=== PATIENT | male | born 1950 | race Caucasian/White ===

== ENCOUNTER → 2017-12-31 16:13 | Outpatient (CLI) | payer OTHER, SELFPAY ==
[2017-12-31 18:10] LABS: Vitamin B12 337 pg/mL (211-911)
[2017-12-31 18:17] LABS: T4 Free Direct 0.91 ng/dL (0.76-1.46); Thyroid Stim Hormone (TSH) 1.71 uIU/mL (0.358-3.74)
== END ==
PROVIDERS: Family Provider Family Medicine; PCP Family Medicine; Visit Provider Family Medicine
DX: E01.0 Iodine-deficiency related diffuse (endemic) goiter (principal); R41.3 Other amnesia
CPT/HCPCS: 36415; 82607; 84439; 84443

== ENCOUNTER → 2018-01-16 08:41 | Outpatient (CLI) | payer OTHER, SELFPAY ==
--- NOTE | 2018-01-16 09:25 | MRI_ITS ---
STUDY: MRI BRAIN WITHOUT CONTRAST REASON FOR EXAM: Male, 67 years old. Memory loss, short tempered for a few months. TECHNIQUE: Standardized multiplanar fat and water weighted pulse sequences were obtained. COMPARISON: None. FINDINGS: There is mild cerebral atrophy with widening of the extra-axial spaces and ventricular dilatation. There are a limited number of small white matter hyperintensities, distributed throughout the deep white matter tracts of the cerebral hemispheres, consistent with mild chronic white matter ischemic changes. Small lacunar infarct within the left basal ganglia is noted. There is no evidence for recent intracranial ischemia or other cause of cytotoxic edema on diffusion weighted imaging (DWI). Normal T2* images of the brain without demonstrated susceptibility artifact. There is no demonstrated hemosiderin stain. Normal bilateral basal ganglia. Normal thalami. There is no extra-axial fluid accumulation. Normal flow voids within the major intracranial circulation suggesting patency by spin echo criteria. Normal sella turcica, pituitary gland, infundibular stalk, optic chiasm and hypothalamus. Normal tectal plate and pineal gland. Normal midbrain, olman and medulla. Normal cerebellum. Normal basal cisterns. Normal bilateral temporal bones. Normal bilateral internal auditory canals. No demonstrated orbital abnormality, within the constraints of a routine brain study. Right maxillary mucoid retention cyst versus polyp is present. Normal calvarium and skull base. Normal visualized soft tissue structures. Normal visualized upper cervical spine. MRI/Brain without Contrast IMPRESSION: Senescent changes with no evidence of acute intracranial bleed, mass or ischemia. Electronically Signed: Eben Szymanski DO at 12:08 EDT , Service support ,
== END ==
PROVIDERS: Family Provider Family Medicine; PCP Family Medicine; Visit Provider Family Medicine
DX: R41.3 Other amnesia (principal); F68.8 Other specified disorders of adult personality and behavior
CPT/HCPCS: 70551

== ENCOUNTER → 2018-02-15 07:22 | Outpatient (CLI) | payer OTHER, SELFPAY | PROVIDERS: Family Provider Family Medicine; PCP Family Medicine; Visit Provider Psychiatry & Neurology Neurology | DX: Z85.038 Personal history of other malignant neoplasm of large intestine (principal); R41.3 Other amnesia; F91.8 Other conduct disorders | CPT/HCPCS: 78608; A9552; A4216 ==

== ENCOUNTER → 2018-05-01 09:05 | Outpatient (CLI) | payer OTHER, SELFPAY ==
--- NOTE | 2018-05-01 09:12 | US_ITS ---
HISTORY: THYROMEGALY TECHNIQUE: Steele scale and color doppler imaging was performed of the thyroid gland. COMPARISON: None FINDINGS: The thyroid gland appears normal in overall size with measurements approximately as follows: Right lobe: 4.6 x 1.5 x 1.8 cm Left lobe: 4.2 x 1.6 x 1.7 cm Isthmus 0.3 cm The right thyroid lobe shows homogenous echotexture. The midpole of the left thyroid lobe shows a solitary hypoechoic nodule measuring 0.4 x 0.4 x 0.3 cm. No dominant lesion seen. US/Thyroid IMPRESSION: 1. Normal thyroid gland size. 2. Left thyroid lobe 0.4 cm nodule. No dominant lesion seen. at 0111 Reported and signed by: David Gallo MD Electronically Signed: David Gallo, at 1:08 EDT Tel , Service support ,
[2018-05-01 10:52] LABS: Absolute Neutrophil Count 3.4 X10^3/uL (2.0-7.7); Basophil% 0.2 % (0-1); Eosinophils% 2.9 % (0-5); Hematocrit 46.6 % (40-54); Hemoglobin 15.7 g/dl (13.0-16.5); Lymphocyte % 30.3 % (19-41); Mean Corp Hgb Conc 33.7 g/gl (32-36); Mean Corpuscular Hgb 31.2 pg (27.0-32.0); Mean Corpuscular Volume 92.5 fL (80-94); Mean Platelet Vol. 10.3 fl (6.2-12.0); Monocyte% 8.9 % (0-10); Neutrophil # 3.43 X10^3/uL (2.7-7.7); Neutrophil % 57.5 % (47-70); Platelet Count 207 K/mm3 (150-450); RBC Distribution Width CV 13.4 % (11.6-14.6); RBC Distribution Width SD 45.3 fl (35.1-43.9); Red Blood Count 5.04 M/mm3 (4.6-6.2)
[2018-05-01 10:53] LABS: Basophil# 0.01 X10^3/uL; Eosinophil# 0.17 X10^3/uL; Monocyte# 0.53 X10^3/uL; POSITIVE COUNT NO; POSITIVE DIFFERENTIAL NO; POSITIVE MORPHOLOGY NO
[2018-05-01 11:22] LABS: ALB/GLOB Ratio 1.1 RATIO (0.9-2.4); AST(SGOT) 17 U/L (15-37); Alanine Aminotransfer ALT/SGPT 32 U/L (16-61); Albumin, Serum 3.8 g/dL (3.2-5.0); Alkaline Phosphatase 81 U/L (45-117); Anion Gap 6 (5-15); BUN 15 mg/dL (7-18); BUN/Creat Ratio 15.6 RATIO (10-20); Calcium,Total 8.6 mg/dL (8.5-10.1); Chloride 105 mmol/L (98-107); Cholesterol 112 mg/dL (200); Creatinine, Serum 0.96 mg/dL (0.70-1.30); EST Glomerular Filtration Rate 83 mL/min (>60); Est Glom Filt Rate - Afr Amer 101 mL/min (>60); Globulin 3.4 g/dL (2.2-4.2); Glucose 87 mg/dL (74-106); High Density Lipoprotein 37 mg/dL; PSA,Total - Annual Screen 0.73 ng/mL (0.00-4.00); Potassium 3.5 mmol/L (3.5-5.1); Protein, Total 7.2 g/dL (6.4-8.2); Sodium Level 141 mmol/L (136-145); Thyroid Stim Hormone (TSH) 2.01 uIU/mL (0.358-3.74); Triglycerides 84 mg/dL; Very Low Density Lipoprotein 17 mg/dL (5-40)
[2018-05-01 11:38] LABS: Vitamin B12 913 pg/mL (211-911)
== END ==
PROVIDERS: Family Provider Family Medicine; PCP Family Medicine; Referring Provider Family Medicine; Visit Provider Family Medicine
DX: Z00.01 Encounter for general adult medical examination with abnormal findings (principal); E01.0 Iodine-deficiency related diffuse (endemic) goiter; I10 Essential (primary) hypertension; E53.8 Deficiency of other specified B group vitamins; Z12.5 Encounter for screening for malignant neoplasm of prostate
CPT/HCPCS: 36415; 76536; 80053; 80061; 82607; 84153; 84439; 84443; 85025; G0103

== ENCOUNTER → 2019-06-28 09:38 | Outpatient (CLI) | payer BC, SELFPAY ==
[2019-06-28 10:47] LABS: Absolute Lymphocyte Count 2.73 X10^3/uL (0.83-4.51); Absolute Neutrophil Count 3.9 X10^3/uL (2.0-7.7); Basophil# 0.03 X10^3/uL; Basophil% 0.4 % (0-1); Eosinophil# 0.22 X10^3/uL; Eosinophils% 2.8 % (0-5); Hematocrit 49.3 % (40-54); Hemoglobin 16.8 g/dL (13.0-16.5); Lymphocyte # 2.73 X10^3/ul (4.0); Lymphocyte % 35.3 % (19-41); Mean Corp Hgb Conc 34.1 g/dL (32-36); Mean Corpuscular Hgb 31.4 pg (27.0-32.0); Mean Corpuscular Volume 92.1 fL (80-94); Mean Platelet Vol. 10.6 fl (6.2-12.0); Monocyte# 0.79 X10^3/uL; Monocyte% 10.2 % (0-10); NRBC Flagged by Analyzer 0 % (0-5); Neutrophil # 3.94 X10^3/uL (2.7-7.7); Neutrophil % 50.9 % (47-70); Platelet Count 214 K/mm3 (150-450); RBC Distribution Width CV 12.8 % (11.6-14.6); RBC Distribution Width SD 42.8 fl (35.1-43.9); Red Blood Count 5.35 M/mm3 (4.6-6.2); White Blood Count 7.7 K/mm3 (4.4-11.0)
[2019-06-28 11:21] LABS: Vitamin B12 663 pg/mL (211-911)
[2019-06-28 11:23] LABS: ALB/GLOB Ratio 0.9 RATIO (0.9-2.4); AST(SGOT) 51 U/L (15-37); Alanine Aminotransfer ALT/SGPT 94 U/L (16-61); Albumin, Serum 3.6 g/dL (3.2-5.0); Alkaline Phosphatase 98 U/L (45-117); Anion Gap 5 (5-15); BUN 21 mg/dL (7-18); BUN/Creat Ratio 19.6 RATIO (10-20); Calcium,Total 8.5 mg/dL (8.5-10.1); Chloride 105 mmol/L (98-107); Cholesterol 186 mg/dL (200); Creatinine, Serum 1.07 mg/dL (0.70-1.30); EST Glomerular Filtration Rate 73 mL/min (>60); Est Glom Filt Rate - Afr Amer 89 mL/min (>60); Globulin 3.8 g/dL (2.2-4.2); Glucose 96 mg/dL (74-106); High Density Lipoprotein 36 mg/dL; PSA,Total - Annual Screen 0.82 ng/mL (0.00-4.00); Potassium 3.6 mmol/L (3.5-5.1); Protein, Total 7.4 g/dL (6.4-8.2); Sodium Level 139 mmol/L (136-145); Triglycerides 189 mg/dL; Very Low Density Lipoprotein 38 mg/dL (5-40)
== END ==
LOC: LAB.FUTURE 09:47 → LAB 09:53
PROVIDERS: Family Provider Family Medicine; PCP Family Medicine; Referring Provider Family Medicine; Visit Provider Family Medicine
DX: I10 Essential (primary) hypertension (principal); E53.8 Deficiency of other specified B group vitamins; E78.5 Hyperlipidemia, unspecified; Z12.5 Encounter for screening for malignant neoplasm of prostate
CPT/HCPCS: 36415; 80053; 80061; 82607; 84153; 85025; G0103

== ENCOUNTER → 2019-11-01 | Outpatient (CLI) | payer BC, SELFPAY ==
--- NOTE | 2019-11-01 10:40 | RAD_ITS ---
STUDY: X-RAY - RIGHT TIBIA AND FIBULA REASON FOR EXAM: Male, 69 years old. Right knee and leg pain, no injury TECHNIQUE: 2 view(s) of the tibia and fibula were obtained. COMPARISON: None. FINDINGS: Normal visualized tibia. Normal visualized fibula. The soft tissue structures are unremarkable. RAD/Tibia & Fibula 2 Views IMPRESSION: Normal x-ray examination of the tibia and fibula. Electronically Signed: Blane Stark, at 10:57 EDT , Service support ,
--- NOTE | 2019-11-01 10:40 | RAD_ITS ---
STUDY: X-RAY - RIGHT KNEE REASON FOR EXAM: Male, 69 years old. Right knee and leg pain, no injury TECHNIQUE: 4 view(s) of the knee. COMPARISON: None. FINDINGS: Normal visualized distal femur. Normal visualized proximal tibia and fibula. Normal proximal tibiofibular articulation. There is mild degenerative arthrosis of the medial femorotibial compartment. Normal lateral femorotibial compartment. There is mild degenerative arthrosis of the patellofemoral articulation. The soft tissue structures are unremarkable. RAD/Knee 4 or More Views IMPRESSION: Degenerative arthrosis. Electronically Signed: Blane Stark, at 10:57 EDT , Service support ,
[2019-11-01 13:16] LABS: AST(SGOT) 57 U/L (15-37); Alanine Aminotransfer ALT/SGPT 103 U/L (16-61); Albumin, Serum 3.8 g/dL (3.2-5.0); Alkaline Phosphatase 104 U/L (45-117); Bilirubin, Direct 0.21 mg/dL (0.00-0.30); Cholesterol 144 mg/dL (200); Globulin 3.7 g/dL (2.2-4.2); High Density Lipoprotein 36 mg/dL; Protein, Total 7.5 g/dL (6.4-8.2); Triglycerides 120 mg/dL; Very Low Density Lipoprotein 24 mg/dL (5-40)
== END | disposition home or self-care (01) ==
PROVIDERS: Family Provider Family Medicine; PCP Family Medicine; Referring Provider Family Medicine; Visit Provider Family Medicine
DX: E78.5 Hyperlipidemia, unspecified (principal); R74.8 Abnormal levels of other serum enzymes; M25.561 Pain in right knee; M79.604 Pain in right leg
CPT/HCPCS: 36415; 73564; 73590; 80061; 80076

== ENCOUNTER → 2019-11-16 10:34 | Outpatient (CLI) | payer BC, SELFPAY ==
[2019-11-16 12:44] LABS: GGTP 49 U/L (15-85)
[2019-11-16 13:45] LABS: Hepatitis B Surface Antibody Non-Reactive; Hepatitis C Antibody Non-Reactive (Nonreactive)
[2019-11-17 09:08] LABS: Hepatitis B Core AB IgM Negative (Negative)
== END ==
PROVIDERS: PCP Family Medicine; Referring Provider Family Medicine; Visit Provider Family Medicine
DX: R74.8 Abnormal levels of other serum enzymes (principal)
CPT/HCPCS: 36415; 82977; 86705; 86706; 86803

== ENCOUNTER → 2019-11-17 09:37 | Outpatient (CLI) | payer BC, SELFPAY ==
--- NOTE | 2019-11-17 09:41 | US_ITS ---
STUDY: ABDOMINAL ULTRASOUND - RIGHT UPPER QUADRANT REASON FOR VISIT: Male, 69 years old ELEVATED LIVER ENZYMES TECHNIQUE: Ultrasound evaluation of the right upper quadrant was performed with real-time and static macdonald-scale imaging. TECHNICAL QUALITY: Limited. Examination limited by bowel gas. COMPARISON: None. FINDINGS: Liver: The liver measures 16 cm. There is mild fatty infiltration. The bile ducts are within normal limits. There is hepatic color flow. The direction of portal flow is hepatopetal. There is no demonstrated mass lesion. Gallbladder: Normal distended gallbladder. The gallbladder wall measures 2.8 mm. There is a negative sonographic Hernandez''s sign. There is no pericholecystic fluid. There are no gallstones. Common Bile Duct (C.B.D.): The common bile duct measures 3.4 mm. Pancreas: Visualized pancreas is sonographically normal Right Kidney: Normal size of the right kidney. The right kidney measures 10.8 x 5.6 x 6.5 cm. Normal renal cortex. The right cortex measures 1.8 cm. There is no demonstrated renal mass or cyst. There is no right hydronephrosis. US/Liver IMPRESSION: Fatty liver, no discrete lesion Electronically Signed: Juve Gaxiola MD at 11:58 EDT , Service support ,
== END ==
PROVIDERS: PCP Family Medicine; Referring Provider Family Medicine; Visit Provider Family Medicine
DX: R74.8 Abnormal levels of other serum enzymes (principal)
CPT/HCPCS: 76705

== ENCOUNTER → 2020-04-20 | Outpatient (CLI) | payer BC, SELFPAY ==
[2020-04-20 18:17] LABS: Erythrocyte Sedimentation Rate 16 mm/hr (0-20)
[2020-04-20 18:26] LABS: CRP 3.64 mg/L (0.0-3.0); Rheumatoid Factor < 10.0 IU/mL (<15); Uric Acid 5.2 mg/dL (3.5-7.2)
[2020-04-24 12:05] LABS: CCP IgG Antibodies 5 units (0-19)
== END | disposition home or self-care (01) ==
LOC: BFHLAB 15:05
PROVIDERS: PCP Family Medicine; Visit Provider Family Medicine
DX: M79.641 Pain in right hand (principal); M79.89 Other specified soft tissue disorders
CPT/HCPCS: 36415; 84550; 85652; 86140; 86200; 86431

== ENCOUNTER → 2020-06-25 09:50 | Outpatient (CLI) | payer MEDICARE, OTHER, SELFPAY ==
[2020-05-21 12:58] VITALS: BMI 26.7
--- NOTE | 2020-06-25 10:00 | RAD_ITS ---
STUDY: X-RAY - PELVIS REASON FOR EXAM: Male, 69 years old. INFLAMMATORY POLYARTHROPATHY, SPONDYLOSIS TECHNIQUE: One view of the pelvis was obtained. COMPARISON: None. FINDINGS: There is a non-specific bowel gas pattern. Normal visualized soft tissue structures. Normal bilateral iliac wings, sacroiliac joints and visualized sacrum. Normal visualized bilateral superior and inferior pubic rami. Normal pubic symphysis. Normal ischial tuberosities. Normal visualized right femoral head. Normal right acetabulum. Normal right hip joint. Normal visualized left femoral head. Normal left acetabulum. Normal left hip joint. RAD/Pelvis 1 or 2 Views IMPRESSION: Normal x-ray examination of the pelvis. Electronically Signed: Antonio Coleman MD at 0:00 EST , Service support ,
[2020-06-25 12:23] LABS: Erythrocyte Sedimentation Rate 5 mm/hr (0-20)
[2020-06-25 12:26] LABS: Absolute Lymphocyte Count 2.58 X10^3/uL (0.83-4.51); Absolute Neutrophil Count 3.4 X10^3/uL (2.0-7.7); Basophil# 0.03 X10^3/uL; Basophil% 0.4 % (0-1); Eosinophil# 0.26 X10^3/uL; Eosinophils% 3.8 % (0-5); Hematocrit 50.7 % (40-54); Hemoglobin 17.3 g/dL (13.0-16.5); Lymphocyte # 2.58 X10^3/ul (4.0); Lymphocyte % 37.8 % (19-41); Mean Corp Hgb Conc 34.1 g/dL (32-36); Mean Corpuscular Hgb 30.9 pg (27.0-32.0); Mean Corpuscular Volume 90.5 fL (80-94); Mean Platelet Vol. 10.5 fl (6.2-12.0); Monocyte# 0.56 X10^3/uL; Monocyte% 8.2 % (0-10); NRBC Flagged by Analyzer 0 % (0-5); Neutrophil # 3.39 X10^3/uL (2.7-7.7); Neutrophil % 49.7 % (47-70); Platelet Count 233 K/mm3 (150-450); RBC Distribution Width SD 43.2 fl (35.1-43.9); White Blood Count 6.8 K/mm3 (4.4-11.0)
[2020-06-25 12:50] LABS: ALB/GLOB Ratio 1.1 RATIO (0.9-2.4); AST(SGOT) 48 U/L (15-37); Alanine Aminotransfer ALT/SGPT 102 U/L (16-61); Alkaline Phosphatase 86 U/L (45-117); Anion Gap 8 (5-15); BUN 20 mg/dL (7-18); CRP < 2.90 mg/L (0.0-3.0); Chloride 107 mmol/L (98-107); Creatinine, Serum 1.05 mg/dL (0.70-1.30); EST Glomerular Filtration Rate 75 mL/min (>60); Est Glom Filt Rate - Afr Amer 90 mL/min (>60); Globulin 3.6 g/dL (2.2-4.2); Glucose 114 mg/dL (74-106); Potassium 3.2 mmol/L (3.5-5.1); Protein, Total 7.6 g/dL (6.4-8.2); Rheumatoid Factor < 10.0 IU/mL (<15); Sodium Level 141 mmol/L (136-145)
[2020-06-25 13:01] LABS: Hepatitis B Surface Antibody Non-Reactive; Hepatitis B Surface Antigen Non-Reactive (Nonreactive); Hepatitis C Antibody Non-Reactive (Nonreactive)
[2020-06-26 13:32] LABS: ANTINUCLEAR ANTIBODIES DIRECT Negative (Negative)
[2020-06-27 09:28] LABS: CCP IgG Antibodies 7 units (0-19)
== END ==
PROVIDERS: PCP Family Medicine; Referring Provider Internal Medicine Rheumatology; Visit Provider Internal Medicine Rheumatology
DX: M06.4 Inflammatory polyarthropathy (principal); M19.041 Primary osteoarthritis, right hand; G56.01 Carpal tunnel syndrome, right upper limb; M47.897 Other spondylosis, lumbosacral region; I10 Essential (primary) hypertension; E78.5 Hyperlipidemia, unspecified; F32.9 Major depressive disorder, single episode, unspecified; Z85.038 Personal history of other malignant neoplasm of large intestine
CPT/HCPCS: 36415; 72170; 80053; 85025; 85652; 86038; 86140; 86200; 86431; 86706; 86803; 87340

== ENCOUNTER 2020-07-20 05:57 | Day surgery (SDC) | payer MEDICARE, OTHER, SELFPAY ==
[2020-05-21 12:58] VITALS: BMI 26.7
[2020-07-20] VITALS (11 sets, daily range): BP systolic 103–149; BP diastolic 70–94; PULSE 56–74; RESP 16–18; TEMP 36.6–36.8; O2SAT 92–97; BMI 27.9
[2020-07-20] MEDS: Lactated Ringers 1,000 ML 100 ML IV (06:44)
[2020-07-20] MEDS: Cefazolin 2 GM in 0.9% Normal Saline 100 ML IV (07:31)
[2020-07-20] MEDS: Bupiv/Epi 0.5% Mpf 30 ML Vial (08:00)
--- NOTE | 2020-07-20 08:03 | PCM.HP.BLA ---
History and Physical Date of Admission: 07/20/20 Intake Intake Visit Reasons: right Hand Accompanied by: Spouse Is patient in pain?: No Allergies hydrocodone bitartrate [From Vicodin] Adverse Reaction (Verified 07/11/20 10:41) N/V Medications Atorvastatin Calcium [Lipitor] 40 mg PO QHS 04/24/15 [History Confirmed 07/11/20] Hydrochlorothiazide [Hctz] 25 mg PO DAILY 04/24/15 [History Confirmed 07/11/20] Ibuprofen [Motrin] 400 mg PO Q6H PRN PRN #0 tab 04/29/15 [Rx Confirmed 07/11/20] lisinopril 10 mg tablet ea PO 05/21/20 [History Confirmed 07/11/20] sertraline 100 mg tablet ea PO 05/21/20 [History Confirmed 07/11/20] PFSH Medical History (Updated 05/21/20 @ 12:59 by Naz Coronado) HTN (hypertension) (Chronic) Social History (Updated 07/11/20 @ 11:[address] Grupo Yates DO) Smoking Status: Former smoker HPI right Hand: Details: Parts of this documentation were recorded by a scribe, this documentation accurately reflects the service provided and the decisions made by me, Dr. Grupo Yates DO 07/11/20 [id number]. CHASITY HAYDEN is a 69 year old M here today for his right hand. Discuss recent EMG study. Pain is rated: 0/10 from the pain scale. Patient recently saw Dr. Bonilla. Patient is to follow up in two weeks. Did not prescribe anything for his RA d/t did not know if the patient would be having surgery or not. Patient states her sensation has decreased. If he picks an item up, he cannot sense it is in his hand. Patient voiced he has pain with making a fist. Radial three digits are effected. ROS Musc Reports system reviewed and no additional complaints, except as docu, Denies joint pain, Reports joint swelling, Reports numbness Neuro Yes numbness Ortho Exam Right Wrist/Hand WRIST: Right Wrist/Hand Skin/Wound: Yes Swelling, No Ecchymosis, Yes nail intact, Yes capillary refill normal Tinel's and Phalen's no drainage or sign of infection swelling/tendernes about MCP of 1st second and third digits. not 4th and 5th numbness and tingling of the radial 3 digits. swelling of volar wrist duputryens cord of the 5th finger without flexion contracutur of digit. non TTP over middle metacarpal shaft. not full extension of the digits stiffness with flexion Supplemental Info 07/09/2020 EMG right upper extremity07/09/2020 EMG right upper extremityAdvanced median neuropathy at the wrist with absent sensory latencyAtrophy of APB axonal loss andSuperficial radial sensory Neuropathy 05/21/20: x-ray right hand: Subacute nondisplaced fracture third metacarpal shaftWith callus, Advanced arthrosisFirst second and third MCP jointPunched out lesion base of first proximal phalanx possibly consistent with gout Similar subchondral cyst in the third digit proximal phalanx distal Condyle head Assessment & Plan Problems 1. Closed nondisplaced fracture of shaft of third metacarpal bone of right hand with routine healing, subsequent encounter S62.980D 2. Carpal tunnel syndrome of right wrist G56.01 3. Stiffness of finger joint of right hand M25.641 Plan Personally reviewed the EMG study and consult note from Dr. Grant. Educated and explained to patient and his spouse his median nerve is entrapped/ pinched where the muscle in his thumb is degenerating. Would decompress the nerve during surgery. Risk is patient may or may not get relief. Surgery would prevent the damage from worsening. Surgery would be approx ten minutes. Soreness for three to four months. May take away for the nerve to start working and would improve overtime. Sensory nerve is also getting pinched. Thumb also has severe arthritis. Patient would like to proceed with surgery for carpal tunnel release. Advised d/c anti-inflammatories seven days prior to surgery. Reviewed the pre-operative plans with the patient. Risks and benefits of the procedure were fully explained, including but not limited to infection, neurovascular injury, continued pain, arthritis, stiffness, need for further surgery, re-injury, DVT, PE, general risks of anesthesia, and loss of limb or life. The patient understands all the risks and does wish to proceed with written consent. Will have a dressing on for two days. Will have restrictions for 3 weeks post op but emphasized importants of early finger ROM as he is stiff already. All questions answered. Patient in agreement of plan. Follow up post-op or sooner if pain, swelling, numbness or associated symptoms, or concerns develop. Coding Level of Care Code Off vis,est,level 3 Diagnoses Closed nondisplaced fracture of shaft of third metacarpal bone of right hand with routine healing, subsequent encounter S62.352D ??Encounter type: subsequent encounter ??Metacarpal bone: third ??Metacarpal location: shaft ??Fracture alignment: nondisplaced ??Fracture healing: with routine healing Carpal tunnel syndrome of right wrist G56.01 Stiffness of finger joint of right hand M25.641 ??Laterality: right I have re-examined the patient. There are no clinical changes since date of exam Procedure Criteria Procedure Type: Elective COVID Risk Discussion: The surgeon/proceduralist and patient have discussed in detail the risk of exposure to and/or potential harm posed by the COVID-19 virus with having a surgery/procedure at this time versus the risk of delaying the surgery/procedure. It is not possible to know either the risk of delaying the surgery or procedure or chance of getting an infection with perfect accuracy, but a joint decision was made between the patient and the surgeon/proceduralist to proceed at this time with the scheduled surgery/procedure as indicated on the consent form.
--- NOTE | 2020-07-20 08:08 | DCINST_ITS ---
Discharge Diet: No Restrictions Call your doctor if you observe: Shortness of breath, Chest pain Additional Instructions: Ice and elevate operative extremity next 72 hours. Keep dressing on clean and dry for 48 hours then may remove and allow warm soapy water to rinse over incision but do not submerge until sutures are out. Then apply bandaid over incision and change daily. encourage finger range of motion. Not lift more than 1/2 pound. Allergies/Adverse Reactions: Allergies hydrocodone bitartrate [From Vicodin] Adverse Reaction (Verified 07/20/20 06:21) N/V Medications to take at Discharge Atorvastatin Calcium [Lipitor] 40 mg PO QHS 04/24/15 Hydrochlorothiazide [Hctz] 25 mg PO DAILY 04/24/15 lisinopril 10 mg tablet 10 mg PO DAILY 05/21/20 sertraline 100 mg tablet 100 mg PO DAILY 05/21/20 traMADol [Ultram] 50 mg PO Q8H PRN PRN #25 tablet 07/20/20 The following prescriptions were given: traMADol [Ultram] 50 mg PO Q8H PRN PRN #25 tablet PRN Reason: Pain Score 6-10 Transmission Status: Sent to [facility] Primary Care Physician: Shukri De León DO [Primary Care Provider] - Test Results: Test results from this visit will be discussed in further detail at your follow- up appointment, if applicable. Please Follow Up With: Grupo Yates DO - 2 weeks
--- NOTE | 2020-07-20 08:09 | PCM.OPRPT ---
Report of Operation Date of Procedure: 07/20/20 Description of Surgical Findings:: Preoperative diagnosis; right carpal tunnel syndrome Postoperative diagnosis; same Procedure: Right open carpal tunnel release Anesthesia: Local with MAC Tourniquet time; 12 minutes 250 mm Hg Complications: None Indication for procedure; This is a 69-year-old male with long-standing symptoms consistent with carpal tunnel syndrome the patient did have electrodiagnostic evidence of this and has failed conservative treatment. Risks benefits and alternatives were reviewed including risks of bleeding infection nerve artery tissue damage need for further surgery and continued pain and symptoms, hypersensitivity to scar and Pillar pain. Procedure; The patient was met in the preoperative holding area the operative extremity was identified by both patient and physician and was marked the patient was met by anesthesia and brought back to the operating room and transferred to the operating table in the supine position. Aanesthesia was started. A well-padded tourniquet was placed on the operative upper extremity. The patient was prepped and draped in the usual sterile fashion. A timeout was called to ensure the proper patient procedure and extremity were being contemplated. 0.5 percent Marcaine with epinephrine was injected into the incisional area. An Esmarch was used to exsanguinate the extremity. The tourniquet was inflated to 250 mmHg. A midline incision was made with a 15 blade scalpel between the thenar and hypothenar eminence. This was carried down through the skin and subcutaneous tissue. Adalberto retractors were then used, a deep blade scalpel was used to make a deep incision in the palmar aponeurosis. The adalberto retractors were then placed deep to this and the transverse carpal ligament was identified a perforation was made with a scalpel and a Littler scissors were used to complete the release of the transverse carpal ligament distally under direct visualization with the tips facing ulnarly until the perivascular fat was reached. Then turning our attention proximally using a tension slide technique the proximal extent of the transverse carpal ligament was released . There was noted to be hourglass configuration to the median nerve and hypertrophy of the transverse carpal ligament without other findings. The wound was thoroughly irrigated and was closed with 4-0 nylon vertical mattress stitches. Dressing was applied in the form of xeroform 4 x 4, web roll and an leigha wrap. Tourniquet was let down there is no intraoperative complications patient tolerated the procedure well and was transferred to the PACU. All counts were correct.
== END 2020-07-20 09:59 | disposition home or self-care (01) ==
LOC: SDC 05:59 → AC 06:00
PROVIDERS: PCP Family Medicine; Referring Provider Orthopaedic Surgery; Visit Provider Orthopaedic Surgery
PROC: (CPT 64721; principal; 2020-07-20 07:15)
DX: G56.01 Carpal tunnel syndrome, right upper limb (principal); I10 Essential (primary) hypertension; Z87.891 Personal history of nicotine dependence; E78.00 Pure hypercholesterolemia, unspecified; Z90.49 Acquired absence of other specified parts of digestive tract; Z79.899 Other long term (current) drug therapy; Z20.822 Contact with and (suspected) exposure to COVID-19
CPT/HCPCS: 01810; 64721; 87426; C9803; J7120

== ENCOUNTER → 2020-08-07 09:22 | Outpatient (CLI) | payer MEDICARE, OTHER, SELFPAY ==
[2020-07-20 06:26] VITALS: BMI 27.9
--- NOTE | 2020-08-07 09:26 | US_ITS ---
STUDY: ABDOMINAL ULTRASOUND - RIGHT UPPER QUADRANT REASON FOR VISIT: Male, 69 years old ELEVATED LIVER ENZYMES- H/O COLON CA TECHNIQUE: Ultrasound evaluation of the right upper quadrant was performed with real-time and static macdonald-scale imaging. TECHNICAL QUALITY: Adequate. COMPARISON: Comparison is made with prior study dated 11/17/2019. FINDINGS: Liver: The liver is slightly enlarged and measures 18.1 cm. There is increased echogenicity consistent with fatty infiltration. The bile ducts are within normal limits. There is hepatic color flow. The direction of portal flow is hepatopetal. There is no demonstrated mass lesion. Gallbladder: Normal distended gallbladder. The gallbladder wall measures 3.0 mm. There is a negative sonographic Hernandez''s sign. There is no pericholecystic fluid. There are no gallstones. Common Bile Duct (C.B.D.): The common bile duct measures 4 mm. Pancreas: Normal size of the head, body and tail of the pancreas. There is normal echogenicity of the pancreas. There is no demonstrated pancreatic mass or cyst. Right Kidney: Normal size of the right kidney. The right kidney measures 12.4 cm x 4.8 cm x 6.3 cm. Normal renal cortex. The right cortex measures 1.8 cm. There is no demonstrated renal mass or cyst. There is no right hydronephrosis. US/Liver IMPRESSION: Mild hepatomegaly and fatty infiltration of the liver. Electronically Signed: Blane Stark MD at 12:28 EST , Service support ,
== END ==
PROVIDERS: PCP Family Medicine; Referring Provider Internal Medicine Rheumatology; Visit Provider Internal Medicine Rheumatology
DX: M06.4 Inflammatory polyarthropathy (principal); M19.041 Primary osteoarthritis, right hand; G56.01 Carpal tunnel syndrome, right upper limb; M47.897 Other spondylosis, lumbosacral region; I10 Essential (primary) hypertension; E78.5 Hyperlipidemia, unspecified; F32.9 Major depressive disorder, single episode, unspecified; Z85.038 Personal history of other malignant neoplasm of large intestine
CPT/HCPCS: 76705

== ENCOUNTER → 2020-10-13 10:04 | Outpatient (CLI) | payer MEDICARE, OTHER, SELFPAY ==
[2020-07-20 06:26] VITALS: BMI 27.9
[2020-10-13 10:46] LABS: Absolute Lymphocyte Count 2.77 X10^3/uL (0.83-4.51); Absolute Neutrophil Count 4.1 X10^3/uL (2.0-7.7); Basophil# 0.04 X10^3/uL; Basophil% 0.5 % (0-1); Eosinophil# 0.28 X10^3/uL; Eosinophils% 3.6 % (0-5); Hematocrit 48.2 % (40-54); Hemoglobin 16.4 g/dL (13.0-16.5); Lymphocyte # 2.77 X10^3/ul (0.83-4.51); Lymphocyte % 35.8 % (19-41); Mean Corpuscular Hgb 31.1 pg (27.0-32.0); Mean Corpuscular Volume 91.3 fL (80-94); Mean Platelet Vol. 10.5 fl (6.2-12.0); Monocyte# 0.59 X10^3/uL; Monocyte% 7.6 % (0-10); NRBC Flagged by Analyzer 0 % (0-5); Neutrophil # 4.05 X10^3/uL (2.7-7.7); Neutrophil % 52.4 % (47-70); Platelet Count 238 K/mm3 (150-450); RBC Distribution Width CV 12.8 % (11.6-14.6); Red Blood Count 5.28 M/mm3 (4.6-6.2); White Blood Count 7.7 K/mm3 (4.4-11.0)
[2020-10-13 10:58] LABS: ALB/GLOB Ratio 0.9 RATIO (0.9-2.4); AST(SGOT) 32 U/L (15-37); Alanine Aminotransfer ALT/SGPT 54 U/L (16-61); Albumin, Serum 3.6 g/dL (3.2-5.0); Alkaline Phosphatase 107 U/L (45-117); Anion Gap 5 (5-15); BUN 13 mg/dL (7-18); BUN/Creat Ratio 13.3 RATIO (10-20); Calcium,Total 8.5 mg/dL (8.5-10.1); Chloride 108 mmol/L (98-107); Creatinine, Serum 0.98 mg/dL (0.70-1.30); EST Glomerular Filtration Rate 81 mL/min (>60); Est Glom Filt Rate - Afr Amer 98 mL/min (>60); Globulin 3.8 g/dL (2.2-4.2); Glucose 101 mg/dL (74-106); Potassium 3.6 mmol/L (3.5-5.1); Protein, Total 7.4 g/dL (6.4-8.2); Sodium Level 140 mmol/L (136-145)
== END ==
PROVIDERS: PCP Family Medicine; Referring Provider Internal Medicine Rheumatology; Visit Provider Internal Medicine Rheumatology
DX: I10 Essential (primary) hypertension (principal); M06.4 Inflammatory polyarthropathy; M19.041 Primary osteoarthritis, right hand; G56.01 Carpal tunnel syndrome, right upper limb; M47.897 Other spondylosis, lumbosacral region; E78.5 Hyperlipidemia, unspecified; F32.9 Major depressive disorder, single episode, unspecified; Z79.899 Other long term (current) drug therapy; Z85.038 Personal history of other malignant neoplasm of large intestine
CPT/HCPCS: 36415; 80053; 85025

== ENCOUNTER → 2021-01-10 10:07 | Outpatient (CLI) | payer MEDICARE, OTHER, SELFPAY ==
[2021-01-10 11:20] LABS: Absolute Lymphocyte Count 2.49 X10^3/uL (0.83-4.51); Basophil# 0.02 X10^3/uL; Basophil% 0.3 % (0-1); Eosinophil# 0.26 X10^3/uL; Eosinophils% 4.1 % (0-5); Hematocrit 48.5 % (40-54); Hemoglobin 16.5 g/dL (13.0-16.5); Lymphocyte # 2.49 X10^3/ul (0.83-4.51); Lymphocyte % 38.9 % (19-41); Mean Corpuscular Hgb 30.8 pg (27.0-32.0); Mean Corpuscular Volume 90.5 fL (80-94); Mean Platelet Vol. 10.9 fl (6.2-12.0); Monocyte# 0.58 X10^3/uL; Monocyte% 9.1 % (0-10); NRBC Flagged by Analyzer 0 % (0-5); Neutrophil # 3.04 X10^3/uL (2.7-7.7); Neutrophil % 47.4 % (47-70); Platelet Count 247 K/mm3 (150-450); RBC Distribution Width SD 42.6 fl (35.1-43.9); Red Blood Count 5.36 M/mm3 (4.6-6.2); White Blood Count 6.4 K/mm3 (4.4-11.0)
[2021-01-10 11:49] LABS: ALB/GLOB Ratio 1.2 RATIO (0.9-2.4); AST(SGOT) 32 U/L (15-37); Alanine Aminotransfer ALT/SGPT 43 U/L (16-61); Alkaline Phosphatase 100 U/L (45-117); Anion Gap 7 (5-15); BUN 21 mg/dL (7-18); BUN/Creat Ratio 18.4 RATIO (10-20); Calcium,Total 8.8 mg/dL (8.5-10.1); Chloride 105 mmol/L (98-107); Creatinine, Serum 1.14 mg/dL (0.70-1.30); EST Glomerular Filtration Rate 68 mL/min (>60); Est Glom Filt Rate - Afr Amer 82 mL/min (>60); Globulin 3.4 g/dL (2.2-4.2); Glucose 102 mg/dL (74-106); Protein, Total 7.4 g/dL (6.4-8.2); Sodium Level 141 mmol/L (136-145)
== END ==
PROVIDERS: PCP Family Medicine; Referring Provider Internal Medicine Rheumatology; Visit Provider Internal Medicine Rheumatology
DX: M06.4 Inflammatory polyarthropathy (principal); M19.041 Primary osteoarthritis, right hand; K76.0 Fatty (change of) liver, not elsewhere classified; M72.0 Palmar fascial fibromatosis [Dupuytren]; M47.897 Other spondylosis, lumbosacral region; I10 Essential (primary) hypertension; E78.5 Hyperlipidemia, unspecified; F32.9 Major depressive disorder, single episode, unspecified; Z85.038 Personal history of other malignant neoplasm of large intestine; Z79.899 Other long term (current) drug therapy
CPT/HCPCS: 36415; 80053; 85025

== ENCOUNTER → 2021-03-28 | Outpatient (CLI) | payer MEDICARE, OTHER, SELFPAY | END | disposition home or self-care (01) | LOC: LABSPEC 16:49 | PROVIDERS: PCP Family Medicine; Visit Provider Family Medicine | DX: U07.1 COVID-19 (principal) | CPT/HCPCS: 87635; U0005; U0003 ==

== ENCOUNTER 2021-04-03 16:03 | Outpatient (CLI) | payer MEDICARE, OTHER, SELFPAY ==
[2021-04-03 16:05] VITALS: BP 119/78; PULSE 77; RESP 22; TEMP 37.1; O2SAT 75
[2021-04-03 16:10] VITALS: BP 109/70; PULSE 78; RESP 24; TEMP 36.7; O2SAT 75
== END 2021-04-03 16:10 | disposition short-term general hospital (02) ==
LOC: MS3 16:56 → MS3OUT 17:10 → MS3 17:10
PROVIDERS: PCP Family Medicine; Referring Provider Nurse Practitioner Adult Health; Visit Provider Nurse Practitioner Adult Health
DX: Z23 Encounter for immunization (principal); U07.1 COVID-19
CPT/HCPCS: Q0244

== ENCOUNTER 2021-04-03 16:32 | Inpatient (IN) | payer MEDICARE, OTHER, SELFPAY ==
[2021-04-03] VITALS (16 sets, daily range): BP systolic 114–179; BP diastolic 72–98; PULSE 74–88; RESP 14–74; TEMP 36.3–37.2; O2SAT 73–100; BMI 26.4; BMI 25.7
--- NOTE | 2021-04-03 16:59 | CT_ITS ---
STUDY: CTA CHEST REASON FOR EXAM: Male, 70 years old. dyspnea -- covid, hypoxia RADIATION DOSAGE (If Supplied By Facility): CTDIvol = ( 12.21 ) mGy, DLP = ( 503.17 ) mGycm TECHNIQUE: The examination was performed with the intravenous administration of IV 100mL Isovue-370. Post-processing of the angiographic images was performed, with multiplanar reformation and 3D reconstruction. Individualized dose optimization techniques were used for this CT. COMPARISON: None. FINDINGS: Normal enhancement of the main pulmonary artery and right and left pulmonary arteries. Normal enhancement of the bilateral peripheral pulmonary arteries. There is no demonstrated pulmonary embolism. Atherosclerotic changes of the aorta without evidence for aneurysm. There is no demonstrated aortic dissection. Heart is normal size. Is mild multivessel coronary artery calcification.. Mildly enlarged mediastinal nodes most likely inflammatory. Tiny calcified left hilar nodes. Normal visualized trachea and bronchi. The lungs are well expanded. Diffuse interstitial thickening with confluent zones of groundglass opacity within both upper and more pronounced in the lower lobes consistent with Covid 19 pneumonia. Normal pleura. Normal chest wall structures. Dorsal spine demonstrates degenerative change Small hiatal hernia is noted Normal visualized upper abdomen. CT/CTA Chest W/WO Contrast IMPRESSION: No evidence for pulmonary embolus Findings consistent with diffuse Covid 19 pneumonia more severe in the lower lobes. ASHD without evidence for aortic aneurysm periaortic leak or dissection Electronically Signed: Romel Argueta MD at 18:44 EDT , Service support ,
--- NOTE | 2021-04-03 16:59 | EKG12_ITS ---
Test Reason : SOB Blood Pressure : / mmHG Vent. Rate : 080 BPM Atrial Rate : 080 BPM P-R Int : 186 ms QRS Dur : 086 ms QT Int : 384 ms P-R-T Axes : 050 015 014 degrees QTc Int : 442 ms Normal sinus rhythm Normal ECG Confirmed by SONIDO SWANSON, REYES ([id number]), publishing editor MARIANA LEONARD ([id number]) on 04/08/2021 10:46:56 AM Referred By: NETTIE Confirmed By:MEMO HEAD MD
--- NOTE | 2021-04-03 17:13 | ED.VIS.DYS ---
HPI History of Present Illness Chief Complaint: Shortness of Breath Informant: patient Narrative Narrative: Patient sent in from [facility] for hypoxemia today pulse ox in the 70s prior to getting infusions. He did not get the infusion. He was sent down here. Symptoms started a week ago. States nonproductive cough. Headache with cough. States occasional diarrhea. No fevers no loss of taste or smell. Decreased appetite. He was diagnosed through his PCP office this past . He was referred into the clinic until today. Reported noting exertional dyspnea since Thursday. No chest pains. Denies asthma or COPD. Remote tobacco back when he was a teenager. He does not wear oxygen. No history of PE. History of hypertension, hyperlipidemia. [facility] Medical History (Updated 04/03/21 @ 20:34 by Maru Lacey) Anxiety and depression Cancer Former tobacco use High cholesterol HTN (hypertension) Rheumatoid arthritis Home Medications atorvastatin 40 mg PO DAILY 04/24/15 [History Last Taken 03/29/21] hydrochlorothiazide 25 mg PO DAILY 04/24/15 [History Last Taken 03/29/21] lisinopril 10 mg tablet 10 mg PO DAILY 05/21/20 [History Last Taken 03/29/21] sertraline 100 mg tablet 100 mg PO DAILY 05/21/20 [History Last Taken 03/29/21] cyanocobalamin (vitamin B-12) [Vitamin B-12] 1,000 mcg PO DAILY 04/03/21 [History Last Taken 03/29/21] Allergy/AdvReac Type Severity Reaction Status Date / Time hydrocodone bitartrate AdvReac N/V Verified 04/03/21 16:40 [From Vicodin] Family History (Updated 04/03/21 @ 19:[address] Elsy Parisi MD) Mother Hypertension Surgical History (Updated 04/03/21 @ 19:[address] Elsy Parisi MD) History of back surgery Hx of umbilical hernia repair S/P appendectomy S/P carpal tunnel release S/P right hemicolectomy S/P tonsillectomy and adenoidectomy Social History (Updated 04/03/21 @ 19:[address] Elsy Parisi MD) household members: spouse Smoking Status: Former smoker how long ago did patient quit smoking: Quit 35 years ago, prior 1 ppd since teenager. alcohol intake: current alcohol intake frequency: holidays/special occasions only substance use type: does not use ROS ROS ED Constitutional Constitutional ED: Denies chills, fever(s) or sweats Eyes Eyes: Denies change in vision ENT ENT ED: Denies dysphagia or sore throat Cardiovascular Cardiovascular: Denies chest pain, leg edema, palpitations or racing heartbeat Respiratory/Chest Respiratory/Chest: Reports cough, dyspnea and dyspnea on exertion Gastrointestinal Gastrointestinal: Denies abdominal pain, diarrhea, nausea or vomiting Genitourinary Genitourinary ED: Denies dysuria, hematuria or urinary frequency Musculoskeletal Musculoskeletal: Denies back pain, extremity pain or neck pain Integumentary Denies rash or wounds Neurologic Neurologic: Reports headache(s); Denies paresthesias or weakness EXAM Physical Exam Const Vital Signs: 04/03/21 16:34 04/03/21 16:39 04/03/21 16:40 Temperature 99 F 99 F 99 F Temperature Source Temporal Temporal Temporal Pulse Rate 80 80 83 Respiratory Rate 19 H 19 H 14 Respiratory Effort Blood Pressure 167/91 H 167/91 H 167/91 H Blood Pressure Mean 116 116 116 Pulse Ox 73 88 91 Oxygen Delivery Method Room Air Nasal Cannula Nasal Cannula Oxygen Flow Rate (L/min) 6 7 04/03/21 16:44 04/03/21 16:45 04/03/21 17:40 Temperature 99 F Temperature Source Temporal Pulse Rate 82 Respiratory Rate 14 Respiratory Effort Short of Breath Labored Blood Pressure 156/98 H Blood Pressure Mean 117 Pulse Ox 93 91 Oxygen Delivery Method Nasal Cannula Nasal Cannula Nasal Cannula Oxygen Flow Rate (L/min) 7 7 12 04/03/21 18:23 04/03/21 18:34 04/03/21 18:56 Temperature Temperature Source Pulse Rate 82 79 Respiratory Rate 18 Respiratory Effort Blood Pressure 156/98 H 179/94 H Blood Pressure Mean 117 122 Pulse Ox 91 94 91 Oxygen Delivery Method Nasal Cannula Nasal Cannula Nasal Cannula Oxygen Flow Rate (L/min) 12 7 8 Positive well nourished and well developed Constitutional Narrative: 7 L nasal cannula pulse ox 96%. No respiratory distress. General Appearance ED: well developed and NAD HEENT Reports moist mucous membranes normocephalic and atraumatic Eyes PERRL, EOMs intact bilaterally and conjunctivae normal General Eye ED: Yes normal appearance of both eyes Neck no lymphadenopathy and supple General: Negative for tenderness Chest Wall Chest: Negative for tenderness Resp normal respiratory effort and normal air movement Effort and Inspection: symmetric chest movement; Negative for respiratory distress Cardio regular rate, regular rhythm and no murmurs Peripheral Pulses: pulses 2+ throughout GI normal to inspection, nondistended, normoactive bowel sounds and non-tender Palpation: Negative for guarding or rebound tenderness present Back/Spine no CVA tenderness and no thoracic nor lumbar tenderness Extremity normal to inspection General Extremety ED: Negative for edema or tenderness General Extremity: Negative for edema Neuro oriented x3 and no sensory deficits noted Sensorium / Orientation: awake and alert Skin no rashes or lesions noted and no wounds MDM MDM MDM Narrative Medical decision making narrative: Patient was 73% on room air upon arrival. She placed on 6 L and increased to 7 L. Due to his hypoxia, PE rule out initiated. EKG sinus rhythm. White count normal labs stable elevated CRP lymphopenia consistent with Covid. D-dimer is elevated 2.5. Troponin negative. CT scan negative for PE however significant Covid pneumonia changes. He was given Decadron. During management he required increased to high flow oxygen to 12 L. Discussed with hospitalist, Dr. Parisi, will mid to PCU stepdown secondary to no ICU beds currently available and limited resources around the area for ICU beds. Nursing report call from infusion clinic today he was 92% prior to infusion and receive his full infusion and dropped down to 73. 1910: Callback from hospitalist, apparently there were open ICU beds available. He will be placed there instead of PCU. Lab Data Attestation: I reviewed the patient's lab results. Labs: Laboratory Results - last 24 hr 04/03/21 04/03/21 04/03/21 16:45 16:45 16:45 WBC 5.6 RBC 5.76 Hgb 17.7 H Hct 52.2 MCV 90.6 MCH 30.7 MCHC 33.9 RDW Std Deviation 42.0 RDW Coeff of Raven 12.9 Plt Count 165 MPV 11.6 Immature Gran % (Auto) 0.500 Neut % (Auto) 75.6 H Lymph % (Auto) 17.3 L [place] % (Auto) 6.4 Eos % (Auto) 0.0 Baso % (Auto) 0.2 Absolute Neuts (auto) 4.2 Absolute Lymphs (auto) 0.97 Nucleated RBC % 0 D-Dimer Quant (PE/DVT) Cancelled Sodium 136 Potassium 4.4 Chloride 101 Carbon Dioxide 27.0 Anion Gap 8 BUN 27 H Creatinine 1.02 Estim Creat Clear Calc 75.02 Est GFR (MDRD) Af Amer 93 Est GFR (MDRD) Non-Af 77 BUN/Creatinine Ratio 26.5 H Glucose 133 H Calcium 8.6 Total Bilirubin 1.50 H AST 115 H ALT 42 Alkaline Phosphatase 102 Troponin I High Sens 16 C-React Prot Ext Range 89.50 H Total Protein 8.5 H Albumin 3.2 Globulin 5.3 H Albumin/Globulin Ratio 0.6 L 04/03/21 18:08 WBC RBC Hgb Hct MCV MCH MCHC RDW Std Deviation RDW Coeff of Raven Plt Count MPV Immature Gran % (Auto) Neut % (Auto) Lymph % (Auto) [place] % (Auto) Eos % (Auto) Baso % (Auto) Absolute Neuts (auto) Absolute Lymphs (auto) Nucleated RBC % D-Dimer Quant (PE/DVT) 2.54 H* Sodium Potassium Chloride Carbon Dioxide Anion Gap BUN Creatinine Estim Creat Clear Calc Est GFR (MDRD) Af Amer Est GFR (MDRD) Non-Af BUN/Creatinine Ratio Glucose Calcium Total Bilirubin AST ALT Alkaline Phosphatase Troponin I High Sens C-React Prot Ext Range Total Protein Albumin Globulin Albumin/Globulin Ratio ABG Data ABG results: ABG 04/03/21 17:24 Specimen Type ART Sample Site L Radial pH 7.44 Bicarbonate Actual 24.7 Total CO2 26 Base Excess 1 O2 Saturation 94 L ABG pCO2 36.8 ABG pO2 70 L Adrián Test Positive O2 Delivery Device Cannula Liter Flow 7.0 Radiography Diagnostic Testing: Clinical Impression(s) from Imaging Studies Chest CTA 04/03/21 16:59 IMPRESSION: No evidence for pulmonary embolus Findings consistent with diffuse Covid 19 pneumonia more severe in the lower lobes. ASHD without evidence for aortic aneurysm periaortic leak or dissection Electronically Signed: Romel Argueta MD at 18:44 EDT , Service support , EKG Initial EKG: Attestation: I personally reviewed and interpreted this EKG as follows: Comments: Sinus rate of 80, no ST changes. T wave inversion leads III. Nonspecific. 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
[2021-04-03] MEDS: dexAMETHasone 4 MG Tablet 6 MG PO (17:16)
[2021-04-03 17:30] LABS: Allen Test Positive; Base Excess 1 mmol/L (-2 to +2); Bicarbonate 24.7 mmol/L (22-26); Blood Gas Specimen Type ART; O2 Delivery Device Cannula; PO2 70 mmHG (75-100); SITE L Radial; SO2 94 % (95-99); Total Carbon Dioxide 26 mmol/L; pCO2 36.8 mmHg (35-45); pH 7.44 (7.35-7.45)
[2021-04-03 17:41] LABS: Absolute Lymphocyte Count 0.97 X10^3/uL (0.83-4.51); Absolute Neutrophil Count 4.2 X10^3/uL (2.0-7.7); Basophil# 0.01 X10^3/uL; Basophil% 0.2 % (0-1); Hematocrit 52.2 % (40-54); Hemoglobin 17.7 g/dL (13.0-16.5); Lymphocyte # 0.97 X10^3/ul (0.83-4.51); Lymphocyte % 17.3 % (19-41); Mean Corp Hgb Conc 33.9 g/dL (32-36); Mean Corpuscular Hgb 30.7 pg (27.0-32.0); Mean Corpuscular Volume 90.6 fL (80-94); Mean Platelet Vol. 11.6 fl (6.2-12.0); Monocyte# 0.36 X10^3/uL; Monocyte% 6.4 % (0-10); NRBC Flagged by Analyzer 0 % (0-5); Neutrophil # 4.23 X10^3/uL (2.7-7.7); Neutrophil % 75.6 % (47-70); Platelet Count 165 K/mm3 (150-450); RBC Distribution Width CV 12.9 % (11.6-14.6); Red Blood Count 5.76 M/mm3 (4.6-6.2); White Blood Count 5.6 K/mm3 (4.4-11.0)
[2021-04-03 17:47] LABS: ALB/GLOB Ratio 0.6 RATIO (0.9-2.4); AST(SGOT) 115 U/L (15-37); Alanine Aminotransfer ALT/SGPT 42 U/L (16-61); Albumin, Serum 3.2 g/dL (3.2-5.0); Alkaline Phosphatase 102 U/L (45-117); Anion Gap 8 (5-15); BUN 27 mg/dL (7-18); BUN/Creat Ratio 26.5 RATIO (10-20); Calcium,Total 8.6 mg/dL (8.5-10.1); Chloride 101 mmol/L (98-107); Creatinine, Serum 1.02 mg/dL (0.70-1.30); EST Glomerular Filtration Rate 77 mL/min (>60); Est Glom Filt Rate - Afr Amer 93 mL/min (>60); Estimated Creatinine Clearance 75.02 ml/min; Globulin 5.3 g/dL (2.2-4.2); Glucose 133 mg/dL (74-106); Potassium 4.4 mmol/L (3.5-5.1); Protein, Total 8.5 g/dL (6.4-8.2); Sodium Level 136 mmol/L (136-145); Troponin-I HS 16 pg/mL (3.0-78.0)
--- NOTE | 2021-04-03 18:09 | ED.RN ---
PT OXYGEN LEVEL DECREASES. PT FINGERS COOL TO TOUCH. PALE, SLIGHTLY CYANOTIC.PT HIGH FLOW O2 INCREASED TO 12. DR CORMIER AWARE
--- NOTE | 2021-04-03 18:31 | ED.RN ---
Pt. son at bedside. Requested pt. be called for updates. Denise Back [phone].
[2021-04-03 18:38] LABS: D-Dimer Quantitative (DVT/PE) 2.54 FEU/ug/m (0.27-0.49)
--- NOTE | 2021-04-03 18:38 | ED.RN ---
D DIMER 2.54. DR JOHNSON
--- NOTE | 2021-04-03 18:48 | PCM.HP.STD ---
HPI - General General Date of Admission: 04/03/21 Date of Service: 04/03/21 Chief Complaint: Dyspnea, hypoxia, COVID positive status, sent from [facility] clinic. HPI Narrative The patient is a 70 y/o M w/ PMHx: HTN, HLD, Anxiety and Depression, Former tobacco use who presents to the [facility] ED on 04/03/21 with history of significant noted hypoxia in the 70s prior to monoclonal antibody infusion on day of ED presentation with onset of Covid type symptoms starting 03/27/2021 with testing on 03/29/2021 noted positive for COVID-19 at PCP office with low grade T, sore throat, headache, fatigue, malaise, nonproductive cough, dyspnea especially with exertion worsening, intermittent loose stools with decreased oral intake prompting referral from the clinic for evaluation. Patient is unvaccinated. Work-up in the ED included T 98.7, heart rate 77, BP 119/78, respiratory rate 22, initially noted to be 75% on room air eventually improving to 88% on 6 L nasal cannula and most recently vital signs included T 99, heart rate 79, BP 179/94, respiratory rate 18, 91 to 94% on 7 to 12 L, CBC with WC 5.6, hemoglobin 17.7, platelet 165 without marked shift, ABG with pH 7.44, O2 saturation 94%, PCO2 36.8, PO2 70, 7 L nasal cannula when ABG obtained, CMP with BUN/creatinine 27/1.02, glucose 133, total bilirubin 1.50, AST/ALT 115/42, cardiac troponin 16, CRP 89.50, D-dimer 2.54, CTPA no evidence for pulmonary embolus, findings consistent with diffuse Covid 19 pneumonia more severe in the lower lobes, ASHD without evidence for aortic aneurysm, periaortic leak or dissection. The patient did get the monoclonal administration. In the ED patient administered IV Decadron. [facility] Medical History (Updated 04/03/21 @ 19:[address] Elsy Parisi MD) Anxiety and depression Former tobacco use High cholesterol HTN (hypertension) Home Medications atorvastatin 40 mg PO QHS 04/24/15 [History Last Taken Unknown] hydrochlorothiazide 25 mg PO DAILY 04/24/15 [History Last Taken Unknown] lisinopril 10 mg tablet 10 mg PO DAILY 05/21/20 [History Last Taken Unknown] sertraline 100 mg tablet 100 mg PO DAILY 05/21/20 [History Last Taken Unknown] tramadol 50 mg PO Q8H PRN PRN #25 tab 07/20/20 [Rx Last Taken Unknown] Allergy/AdvReac Type Severity Reaction Status Date / Time hydrocodone bitartrate AdvReac N/V Verified 04/03/21 16:40 [From Vicodin] Family History (Updated 04/03/21 @ 19:[address] Elsy Parisi MD) Mother Hypertension other (Patient denies any knowledge of his paternal family history.) Surgical History (Updated 04/03/21 @ 19:[address] Elsy Parisi MD) History of back surgery Hx of umbilical hernia repair S/P appendectomy S/P carpal tunnel release S/P right hemicolectomy S/P tonsillectomy and adenoidectomy Social History (Updated 04/03/21 @ 19:[address] Elsy Parisi MD) household members: spouse Smoking Status: Former smoker how long ago did patient quit smoking: Quit 35 years ago, prior 1 ppd since teenager. alcohol intake: current alcohol intake frequency: holidays/special occasions only substance use type: does not use ROS ROS Narrative Admission Review of Systems: CONSTITUTIONAL: No weight loss, chills, + low grade fever, weakness or fatigue. HEENT: + PRICE, sore throat. Eyes: No visual loss, blurred vision, double vision or yellow sclerae. Ears, Nose, Throat: No hearing loss, sneezing. SKIN: No rash or itching, lesions, wounds. CARDIOVASCULAR: No chest pain, chest pressure or chest discomfort, palpitations, edema, orthopnea, syncopal events. RESPIRATORY: + shortness of breath, cough, No sputum, wheezing, hemoptysis. GASTROINTESTINAL: + anorexia, diarrhea, No marked nausea, vomiting, abdominal pain, melena, BRBPR. GENITOURINARY: No dysuria, frequency, urgency or retention. NEUROLOGICAL: + headache, No dizziness, syncope, paralysis, ataxia, numbness or tingling in the extremities, focal weakness, change in bowel or bladder control, seizure. MUSCULOSKELETAL: + muscle, back pain, joint pain or stiffness. HEMATOLOGIC: No anemia, bleeding or bruising. LYMPHATICS: No enlarged nodes. No history of splenectomy. PSYCHIATRIC: + history of depression or anxiety. ENDOCRINOLOGIC: No reports of sweating, cold or heat intolerance. No polyuria or polydipsia. ALLERGIES: No history of asthma, hives, eczema or rhinitis. Vital Signs Vital Signs Vital Signs: 04/03/21 16:34 04/03/21 16:39 04/03/21 16:40 Temperature 99 F 99 F 99 F Temperature Source Temporal Temporal Temporal Pulse Rate 80 80 83 Respiratory Rate 19 H 19 H 14 Respiratory Effort Blood Pressure 167/91 H 167/91 H 167/91 H Blood Pressure Mean 116 116 116 Pulse Ox 73 88 91 Oxygen Delivery Method Room Air Nasal Cannula Nasal Cannula Oxygen Flow Rate (L/min) 6 7 04/03/21 16:44 04/03/21 16:45 04/03/21 17:40 Temperature 99 F Temperature Source Temporal Pulse Rate 82 Respiratory Rate 14 Respiratory Effort Short of Breath Labored Blood Pressure 156/98 H Blood Pressure Mean 117 Pulse Ox 93 91 Oxygen Delivery Method Nasal Cannula Nasal Cannula Nasal Cannula Oxygen Flow Rate (L/min) 7 7 12 04/03/21 18:23 04/03/21 18:34 Temperature Temperature Source Pulse Rate 82 79 Respiratory Rate 18 Respiratory Effort Blood Pressure 156/98 H 179/94 H Blood Pressure Mean 117 122 Pulse Ox 91 94 Oxygen Delivery Method Nasal Cannula Nasal Cannula Oxygen Flow Rate (L/min) 12 7 Weight Weight: 195 lb 5.273 oz Body Mass Index (BMI) 26.4 Physical Exam Narrative Physical Examination: General: Awake, alert, oriented x 3 and cooperative, seated upright in the ED bed, evident respiratory failure, currently on elevated nasal cannula, increased respiratory rate, evidence of compromised Skin: Normal color, normal turgor, no icterus, no cyanosis. HEENT: AT/NC, EOMI, PERRLA, dry MM, no carotid bruits or JVD noted. Lungs: Diffusely diminished, greater bases, increased respiratory rate, evidence of respiratory compromise, no rales, ronchi or wheezing. Heart: Regular rate and rhythm; no gallop, rub audible. Abdomen: Soft, overweight, NTTP, ND, normal BS, no HSM. Extremities: No cyanosis, clubbing, or edema. Neurological: Patient awake, alert, oriented as noted, cognitive function intact; pupils equally reactive to light and accommodation, cranial nerves II-XII grossly normal, moving all 4 extremities, no focal deficits, strength severely globally Vanita secondary to acute presentation. Psychiatric: Affect appears fatigued, ill-appearing, evidence of respiratory compromise, no acute evidence of depressive or anxiety feelings. Results Lab / Micro Data Result Diagrams: 04/03/21 16:45 04/03/21 16:45 Labs: Laboratory Results - last 24 hr 04/03/21 16:45: WBC 5.6, RBC 5.76, Hgb 17.7 H, Hct 52.2, MCV 90.6, MCH 30.7, MCHC 33.9, RDW Std Deviation 42.0, RDW Coeff of Raven 12.9, Plt Count 165, MPV 11.6, Immature Gran % (Auto) 0.500, Neut % (Auto) 75.6 H, Lymph % (Auto) 17.3 L, [place] % (Auto) 6.4, Eos % (Auto) 0.0, Baso % (Auto) 0.2, Absolute Neuts (auto) 4.2, Absolute Lymphs (auto) 0.97, Nucleated RBC % 0 04/03/21 16:45: D-Dimer Quant (PE/DVT) Cancelled 04/03/21 16:45: Sodium 136, Potassium 4.4, Chloride 101, Carbon Dioxide 27.0, Anion Gap 8, BUN 27 H, Creatinine 1.02, Estim Creat Clear Calc 75.02, Est GFR (MDRD) Af Amer 93, Est GFR (MDRD) Non-Af 77, BUN/Creatinine Ratio 26.5 H, Glucose 133 H, Calcium 8.6, Total Bilirubin 1.50 H, AST 115 H, ALT 42, Alkaline Phosphatase 102, Troponin I High Sens 16, C-React Prot Ext Range 89.50 H, Total Protein 8.5 H, Albumin 3.2, Globulin 5.3 H, Albumin/Globulin Ratio 0.6 L 04/03/21 18:08: D-Dimer Quant (PE/DVT) 2.54 H* ABG Data ABG results: ABG 04/03/21 17:24 Specimen Type ART Sample Site L Radial pH 7.44 Bicarbonate Actual 24.7 Total CO2 26 Base Excess 1 O2 Saturation 94 L ABG pCO2 36.8 ABG pO2 70 L Adrián Test Positive O2 Delivery Device Cannula Liter Flow 7.0 Radiology Impression Chest CTA 04/03/21 16:59 IMPRESSION: No evidence for pulmonary embolus Findings consistent with diffuse Covid 19 pneumonia more severe in the lower lobes. ASHD without evidence for aortic aneurysm periaortic leak or dissection Electronically Signed: Romel Argueta MD at 18:44 EDT , Service support , Assessment & Plan Assessment/Plan (1) Pneumonia due to 2019 novel coronavirus: (2) Acute respiratory failure with hypoxia: PLAN: The patient is a 70 y/o M w/ PMHx: HTN, HLD, Anxiety and Depression, Former tobacco use who presents to the [facility] ED on 04/03/21 with history of significant noted hypoxia in the 70s prior to monoclonal antibody infusion on day of ED presentation with onset of Covid type symptoms starting 03/27/2021 with testing on 03/29/2021 noted positive for COVID-19 at PCP office with low grade T, sore throat, headache, fatigue, malaise, nonproductive cough, dyspnea especially with exertion worsening, intermittent loose stools with decreased oral intake prompting referral from the clinic for evaluation. 1. Acute Hypoxic Respiratory Failure secondary to Acute Bilateral Pneumonia secondary to Acute Viral Syndrome, COVID-19: Will admit to the ICU as expect transition soon to BIPAP needs, will maintain on oxygen with wean as tolerated to room air, PRN albuterol, HOB, IS parameters w/ pending sputum cultures, respiratory viral panel and urine antigens, procalcitonin, Ferritin, LDH and BNP, continue supportive care including q 2 hour turning including prone given no prone bed availability and judicious hydration, closely monitor for worsening status for ARDS and multiorgan failure, will initiate and continue IV decadron x 10 doses, given presentation and appropriate timeline will also initiate IV remdesivir but defer to discretion of Infectious disease. If patient worsens further and requires Airvo or BIPAP will add ID consultation for consideration baricitinib regimen. 2. Hypertension: Continue home regimen including hydrochlorothiazide, lisinopril with hold parameters as needed, PRN hydralazine. 3. Hyperlipidemia: Continue home statin regimen. 4. Anxiety and depression: We will continue patient on sertraline regimen. 5. Former tobacco use: Encourage continued tobacco cessation. 6. DVT prophylaxis: SCDs, Lovenox. 7. CODE status: Patient HCPOA and living will not in place. Given severity of presentation, discussed CODE status at length including difference between FULL code, DNR-CCA and DNR-CC status. Following discussions about the differences in these status, requested Full Code status. Amenable to airvo and BIPAP if needed. Also, of note amenable to hawthorne removal if needed for BIPAP. Advanced Care Planning Face to Face Time: 16 minutes. Charges/Coding Visit Charges Inpatient E&M: 17394 Init Hosp L3 Procedures Hospitalists Procedures: 45035 Advncd Care Plan 30 Min
--- NOTE | 2021-04-03 19:28 | ED.RN ---
Called to give report and nurse states the charge nurse is working to figure out staffing and they will have to call back for report.
[2021-04-03] MEDS: 0.9% Normal Saline 1,000 ML 100 ML IV (21:02)
[2021-04-03 21:35] LABS: Procalcitonin 0.11 ng/mL (0.00-0.09)
[2021-04-03 21:43] LABS: Ferritin 3782 ng/mL (26-388); LDH 913 U/L (87-241)
[2021-04-03] MEDS: Enoxaparin 30 MG/0.3 ML Syringe SC (22:30)
[2021-04-03] MEDS: Atorvastatin Calcium 40 MG Tablet PO (22:30)
[2021-04-03] MEDS: Famotidine 20 MG Tablet PO (22:30)
[2021-04-04] VITALS (34 sets, daily range): BP systolic 104–156; BP diastolic 65–102; PULSE 64–82; RESP 12–32; TEMP 35.9–36.9; O2SAT 87–95
[2021-04-04 04:37] LABS: Absolute Lymphocyte Count 0.59 X10^3/uL (0.83-4.51); Absolute Neutrophil Count 3.2 X10^3/uL (2.0-7.7); Hematocrit 47.4 % (40-54); Hemoglobin 16.5 g/dL (13.0-16.5); Lymphocyte # 0.59 X10^3/ul (0.83-4.51); Lymphocyte % 14.6 % (19-41); Mean Corp Hgb Conc 34.8 g/dL (32-36); Mean Corpuscular Volume 89.1 fL (80-94); Mean Platelet Vol. 10.4 fl (6.2-12.0); Monocyte# 0.24 X10^3/uL; Monocyte% 5.9 % (0-10); NRBC Flagged by Analyzer 0 % (0-5); Neutrophil # 3.17 X10^3/uL (2.7-7.7); Neutrophil % 78.5 % (47-70); POSITIVE DIFFERENTIAL YES; POSITIVE MORPHOLOGY YES; Platelet Count 160 K/mm3 (150-450); RBC Distribution Width CV 12.6 % (11.6-14.6); RBC Distribution Width SD 41.4 fl (35.1-43.9); Red Blood Count 5.32 M/mm3 (4.6-6.2)
[2021-04-04 04:53] LABS: Differential Indicated SCAN CRITERIA MET
[2021-04-04 05:25] LABS: ALB/GLOB Ratio 0.6 RATIO (0.9-2.4); AST(SGOT) 76 U/L (15-37); Alanine Aminotransfer ALT/SGPT 35 U/L (16-61); Albumin, Serum 2.6 g/dL (3.2-5.0); Alkaline Phosphatase 89 U/L (45-117); Anion Gap 9 (5-15); BUN 22 mg/dL (7-18); BUN/Creat Ratio 31.2 RATIO (10-20); Calcium,Total 8.1 mg/dL (8.5-10.1); Chloride 103 mmol/L (98-107); EST Glomerular Filtration Rate 118 mL/min (>60); Est Glom Filt Rate - Afr Amer 143 mL/min (>60); Estimated Creatinine Clearance 76.52 ml/min; Globulin 4.5 g/dL (2.2-4.2); Glucose 155 mg/dL (74-106); Potassium 3.6 mmol/L (3.5-5.1); Protein, Total 7.1 g/dL (6.4-8.2); Sodium Level 138 mmol/L (136-145)
--- NOTE | 2021-04-04 06:11 | CON.PCM.CC_ITS ---
Assessment & Plan Assessment/Plan (1) Acute respiratory failure with hypoxia: (2) Pneumonia due to 2019 novel coronavirus: PLAN: RECOMMENDATIONS: 1. Continue BiPAP therapy and wean FiO2 to maintain oxygen saturations at or above 90%. 2. Continue Decadron to complete 10-day treatment course. 3. Continue remdesivir. Continue to monitor liver and renal function. 4. Continue prophylactic Lovenox. 5. Obtain infectious diseases consultation for consideration of baricitinib. 6. Utilize IV Lasix as needed to maintain euvolemic state. 7. Awake prone positioning was encouraged. IMPRESSIONS: 1. Acute hypoxemic respiratory failure secondary to COVID-19 pneumonia Although the patient was initially referred to receive the monoclonal therapy on an outpatient basis, he became hypoxemic and required inpatient hospitalization. He has had a rapid decline in his respiratory status with increasing oxygen demand over the last 12 hours, necessitating ICU transfer. The patient will be continued on noninvasive positive pressure ventilatory support as tolerated. FiO2 will be weaned to maintain oxygen saturations at or above 90%. The patient will be continued on remdesivir, Decadron and prophylactic Lovenox. Will obtain infectious diseases consultation for consideration of baricitinib. IV Lasix can be utilized as needed to maintain euvolemic state. 2. Hypertension/hyperlipidemia/depression/anxiety Complicates care, management, recovery and prognosis. Continue home medications as indicated. TIME: 36 minutes of critical care time, independent of procedures, was spent a ddressing the patient's acute hypoxemic respiratory failure secondary to COVID- 19 pneumonia, review of all data and collaboration with the care team. ([id number]) HPI Consult Data Date of Consult: 04/04/21 HPI Narrative Reason for Consultation: Acute hypoxemic respiratory failure secondary to COVID- 19 pneumonia HPI Narrative: The patient is a 70-year-old male, with a history as outlined below, who presented to the emergency department on April 03 with dyspnea and hypoxemia. The patient's symptoms initially began on March 27. The patient tested positive for coronavirus on March 29. The patient is unvaccinated. The patient was screened for monoclonal antibody infusion therapy yesterday and was referred to receive the medication. However, prior to receiving the monoclonal antibody infusion, the patient was noted to be hypoxemic with oxygen saturations in the 70s. Therefore, he was referred to the emergency department for evaluation. On presentation to the emergency department, the patient was noted to be afebrile and hemodynamically stable. The patient was hypoxemic at presentation and was initially requiring nasal cannula supplemental oxygen to maintain appropriate saturations. Laboratory evaluation revealed a D-dimer of 2.5. Chemistry profile was largely unrevealing. CRP was elevated at 90. BNP was unremarkable. Procalcitonin was noted to be 0.11. Arterial blood gas obtained on 7 L/min revealed a pH of 7.4 with a PCO2 of 36 and PO2 of 70. CTA chest showed no evidence for PE. However, significant bilateral groundglass changes were noted bilaterally. The patient was subsequently placed on remdesivir, Decadron and prophylactic Lovenox. Overnight, the patient has decompensated rapidly from a respiratory perspective and is now requiring continuous BiPAP support with an FiO2 requirement of 80%. FORMERLY [facility], LAT[facility] Medical History (Updated 04/03/21 @ 20:34 by Maru Lacey) Anxiety and depression Cancer Former tobacco use High cholesterol HTN (hypertension) Rheumatoid arthritis Home Medications atorvastatin 40 mg PO DAILY 04/24/15 [History Last Taken 03/29/21] hydrochlorothiazide 25 mg PO DAILY 04/24/15 [History Last Taken 03/29/21] lisinopril 10 mg tablet 10 mg PO DAILY 05/21/20 [History Last Taken 03/29/21] sertraline 100 mg tablet 100 mg PO DAILY 05/21/20 [History Last Taken 03/29/21] cyanocobalamin (vitamin B-12) [Vitamin B-12] 1,000 mcg PO DAILY 04/03/21 [History Last Taken 03/29/21] Allergy/AdvReac Type Severity Reaction Status Date / Time hydrocodone bitartrate AdvReac N/V Verified 04/03/21 16:40 [From Vicodin] Family History (Updated 04/03/21 @ 19:[address] Elsy Parisi MD) Mother Hypertension Family History other Surgical History (Updated 04/03/21 @ 19:[address] Elsy Parisi MD) History of back surgery Hx of umbilical hernia repair S/P appendectomy S/P carpal tunnel release S/P right hemicolectomy S/P tonsillectomy and adenoidectomy Social History (Updated 04/03/21 @ 19:[address] Elsy Parisi MD) household members: spouse Smoking Status: Former smoker how long ago did patient quit smoking: Quit 35 years ago, prior 1 ppd since teenager. alcohol intake: current alcohol intake frequency: holidays/special occasions only substance use type: does not use ROS Constitutional Constitutional: Reports fatigue, headache(s) and malaise Eyes Eyes: Denies blurry vision or change in vision ENT HEENT: Reports headache(s); Denies dizziness, loss taste/smell or nasal discharge Cardiovascular Cardiovascular: Reports dyspnea; Denies chest pain Respiratory/Chest Respiratory/Chest: Reports cough and dyspnea Gastrointestinal Gastrointestinal: Denies abdominal pain, diarrhea, nausea or vomiting Genitourinary Genitourinary: Denies difficulty urinating Musculoskeletal Musculoskeletal: Denies arthralgias, back pain or joint pain Integumentary Integumentary: Denies lesions, rash or skin ulcer Neurologic Neurologic: Denies abnormal gait or abnormal speech Psychiatric Psychiatric: Denies anxiety or depression Endocrine Endocrinology: Reports fatigue Hematologic/Lymphatic Hematologic/Lymphatic: Denies easy bleeding or easy bruising Physical Exam Const alert General Appearance: cooperative, comfortable and on BiPAP HEENT normocephalic and head/scalp atraumatic Eyes PERRL, EOMs intact bilaterally and conjunctivae normal Neck supple General: trachea midline Chest inspection of chest normal Resp Effort and Inspection: tachypneic Auscultation: Negative for rales, rhonchi or wheezes Cardio regular rate and regular rhythm GI normal to inspection, nondistended, normoactive bowel sounds Extremity no clubbing, cyanosis or edema Skin no rashes or lesions noted Neuro CN's II-XII intact bilaterally, moves all extremities and no focal motor deficits Psych cooperative and affect normal Lab / Micro Data Result Diagrams: 04/04/21 04:15 04/04/21 04:15 Labs: Laboratory Results - last 24 hr 04/03/21 16:45: WBC 5.6, RBC 5.76, Hgb 17.7 H, Hct 52.2, MCV 90.6, MCH 30.7, MCHC 33.9, RDW Std Deviation 42.0, RDW Coeff of Raven 12.9, Plt Count 165, MPV 11.6, Immature Gran % (Auto) 0.500, Neut % (Auto) 75.6 H, Lymph % (Auto) 17.3 L, Story % (Auto) 6.4, Eos % (Auto) 0.0, Baso % (Auto) 0.2, Absolute Neuts (auto) 4.2, Absolute Lymphs (auto) 0.97, Nucleated RBC % 0 04/03/21 16:45: D-Dimer Quant (PE/DVT) Cancelled 04/03/21 16:45: Sodium 136, Potassium 4.4, Chloride 101, Carbon Dioxide 27.0, Anion Gap 8, BUN 27 H, Creatinine 1.02, Estim Creat Clear Calc 75.02, Est GFR (MDRD) Af Amer 93, Est GFR (MDRD) Non-Af 77, BUN/Creatinine Ratio 26.5 H, Glucose 133 H, Calcium 8.6, Total Bilirubin 1.50 H, AST 115 H, ALT 42, Alkaline Phosphatase 102, Troponin I High Sens 16, C-React Prot Ext Range 89.50 H, Total Protein 8.5 H, Albumin 3.2, Globulin 5.3 H, Albumin/Globulin Ratio 0.6 L 04/03/21 18:08: D-Dimer Quant (PE/DVT) 2.54 H* 04/03/21 20:50: Ferritin 3782 H, Lactate Dehydrogenase 913 H 04/03/21 20:50: B-Natriuretic Peptide 39.0 04/03/21 20:50: Procalcitonin 0.11 H 04/04/21 04:15: WBC 4.0 L, RBC 5.32, Hgb 16.5, Hct 47.4, MCV 89.1, MCH 31.0, MCHC 34.8, RDW Std Deviation 41.4, RDW Coeff of Raven 12.6, Plt Count 160, MPV 10.4, Immature Gran % (Auto) 1.000 H, Neut % (Auto) 78.5 H, Lymph % (Auto) 14.6 L, Story % (Auto) 5.9, Eos % (Auto) 0.0, Baso % (Auto) 0.0, Absolute Neuts (auto) 3.2, Absolute Lymphs (auto) 0.59 L, Nucleated RBC % 0 04/04/21 04:15: Sodium 138, Potassium 3.6, Chloride 103, Carbon Dioxide 26.0, Anion Gap 9, BUN 22 H, Creatinine 0.70, Estim Creat Clear Calc 76.52, Est GFR (MDRD) Af Amer 143, Est GFR (MDRD) Non-Af 118, BUN/Creatinine Ratio 31.2 H, Glucose 155 H, Calcium 8.1 L, Total Bilirubin 0.90, AST 76 H, ALT 35, Alkaline Phosphatase 89, Total Protein 7.1, Albumin 2.6 L, Globulin 4.5 H, Albumin/Globulin Ratio 0.6 L Micro: Microbiology 04/03/21 21:25 Mucosa - Nasopharyngeal Respiratory Panel (PCR) - Final ABG Data ABG results: ABG 04/03/21 17:24 Specimen Type ART Sample Site L Radial pH 7.44 Bicarbonate Actual 24.7 Total CO2 26 Base Excess 1 O2 Saturation 94 L ABG pCO2 36.8 ABG pO2 70 L Adrián Test Positive O2 Delivery Device Cannula Liter Flow 7.0 Radiology Impression Chest CTA 04/03/21 16:59 IMPRESSION: No evidence for pulmonary embolus Findings consistent with diffuse Covid 19 pneumonia more severe in the lower lobes. ASHD without evidence for aortic aneurysm periaortic leak or dissection Electronically Signed: Romel Argueta MD at 18:44 EDT , Service support , Charges/Coding Procedures Hospitalists Procedures: [id number] Critial Care 1st Hr
[2021-04-04 07:11] LABS: Differential Comment SCANNED
--- NOTE | 2021-04-04 07:15 | PN.HOSP_ITS ---
Subjective Subjective Patient is a 70-year-old M who presented with progressive shortness of breath. Patient tested positive for Covid on 03/29/2021 his symptoms had started on 03/27/2021. He did receive monoclonal antibody infusion as outpatient however presented with worsening symptoms Objective Data Objective Data Vital Signs: Vital Signs Temp Pulse Resp BP Pulse Ox 97.3 F L 70 32 H 148/102 H 93 04/04/21 04:00 04/04/21 07:00 04/04/21 07:00 04/04/21 07:00 04/04/21 07:00 Oxygen Flow Rate (L/min) 10 Oxygen Delivery Method Bi-pap Weight: 85.729 kg Body Mass Index (BMI) 25.7 Intake & Output: Intake and Output for Last 24 Hours 04/02/21 04/03/21 04/04/21 23:59 23:59 23:59 Intake Total 300 / 300 1275 / 1275 Output Total 650 / 650 Balance 300 / 150 625 / 625 Lab / Micro Data Result Diagrams: 04/04/21 04:15 04/04/21 04:15 Labs: Laboratory Results - last 24 hr 04/03/21 16:45: WBC 5.6, RBC 5.76, Hgb 17.7 H, Hct 52.2, MCV 90.6, MCH 30.7, MCHC 33.9, RDW Std Deviation 42.0, RDW Coeff of Raven 12.9, Plt Count 165, MPV 11.6, Immature Gran % (Auto) 0.500, Neut % (Auto) 75.6 H, Lymph % (Auto) 17.3 L, [place] % (Auto) 6.4, Eos % (Auto) 0.0, Baso % (Auto) 0.2, Absolute Neuts (auto) 4.2, Absolute Lymphs (auto) 0.97, Nucleated RBC % 0 04/03/21 16:45: D-Dimer Quant (PE/DVT) Cancelled 04/03/21 16:45: Sodium 136, Potassium 4.4, Chloride 101, Carbon Dioxide 27.0, Anion Gap 8, BUN 27 H, Creatinine 1.02, Estim Creat Clear Calc 75.02, Est GFR (MDRD) Af Amer 93, Est GFR (MDRD) Non-Af 77, BUN/Creatinine Ratio 26.5 H, Glucose 133 H, Calcium 8.6, Total Bilirubin 1.50 H, AST 115 H, ALT 42, Alkaline Phosphatase 102, Troponin I High Sens 16, C-React Prot Ext Range 89.50 H, Total Protein 8.5 H, Albumin 3.2, Globulin 5.3 H, Albumin/Globulin Ratio 0.6 L 04/03/21 18:08: D-Dimer Quant (PE/DVT) 2.54 H* 04/03/21 20:50: Ferritin 3782 H, Lactate Dehydrogenase 913 H 04/03/21 20:50: B-Natriuretic Peptide 39.0 04/03/21 20:50: Procalcitonin 0.11 H 04/04/21 04:15: WBC 4.0 L, RBC 5.32, Hgb 16.5, Hct 47.4, MCV 89.1, MCH 31.0, MCHC 34.8, RDW Std Deviation 41.4, RDW Coeff of Raven 12.6, Plt Count 160, MPV 10.4, Immature Gran % (Auto) 1.000 H, Neut % (Auto) 78.5 H, Lymph % (Auto) 14.6 L, [place] % (Auto) 5.9, Eos % (Auto) 0.0, Baso % (Auto) 0.0, Absolute Neuts (auto) 3.2, Absolute Lymphs (auto) 0.59 L, Nucleated RBC % 0, Differential Comment SCANNED, Diff Path Review October foll 04/04/21 04:15: Sodium 138, Potassium 3.6, Chloride 103, Carbon Dioxide 26.0, Anion Gap 9, BUN 22 H, Creatinine 0.70, Estim Creat Clear Calc 76.52, Est GFR (MDRD) Af Amer 143, Est GFR (MDRD) Non-Af 118, BUN/Creatinine Ratio 31.2 H, Glucose 155 H, Calcium 8.1 L, Total Bilirubin 0.90, AST 76 H, ALT 35, Alkaline Phosphatase 89, Total Protein 7.1, Albumin 2.6 L, Globulin 4.5 H, Albumin/Globulin Ratio 0.6 L Micro: Microbiology 04/03/21 21:25 Mucosa - Nasopharyngeal Respiratory Panel (PCR) - Final ABG Data ABG results: ABG 04/03/21 17:24 Specimen Type ART Sample Site L Radial pH 7.44 Bicarbonate Actual 24.7 Total CO2 26 Base Excess 1 O2 Saturation 94 L ABG pCO2 36.8 ABG pO2 70 L Adrián Test Positive O2 Delivery Device Cannula Liter Flow 7.0 Radiography Diagnostic Testing: Radiology Impression Chest CTA 04/03/21 16:59 IMPRESSION: No evidence for pulmonary embolus Findings consistent with diffuse Covid 19 pneumonia more severe in the lower lobes. ASHD without evidence for aortic aneurysm periaortic leak or dissection Electronically Signed: Romel Argueta MD at 18:44 EDT , Service support , Physical Exam Narrative GENERAL: Appears ill looking and dyspneic at rest HEENT: Atraumatic; EYES; Anicteric, Normal Conjunctiva NECK; supple, normal thyroid, RESPIRATORY: Diminished to auscultation CARDIOVASCULAR: Regular S1 S2, GI: soft, normoactive bowel sounds, : No Renal angle tenderness; EXTREMITIES: No edema, no clubbing, MUSCULOSKELETAL: no muscle waisting NEURO: Awake; no lateralizing signs. SKIN: No Rash PSYCH; Flat affect Assessment & Plan Assessment/Plan (1) Pneumonia due to 2019 novel coronavirus: (2) Acute respiratory failure with hypoxia: PLAN: Patient is a 70-year-old M unvaccinated against COVID-19 who presented with progressive shortness of breath. Patient tested positive for Covid on 03/29/2021 his symptoms had started on 03/27/2021. He did receive monoclonal antibody infusion as outpatient however presented with worsening symptoms 1. Acute hypoxic respiratory failure secondary to SARS-CoV-2 pneumonia ?. Patient was transferred to the intensive care unit due to rapidly dete riorating oxygen levels. Was placed on noninvasive ventilation Airvo 40 L/min with FiO2 of 80%. Patient was started on remdesivir on admission did continue also on Decadron consulted ID for initiation of baricitinib 2. Hypertension - Blood pressure controlled, home medications continued with dose adjustment as needed 3. Dyslipidemia -Patient is on statin therapy, continued at home dose 4. Depression with anxiety ?Patient is on sertraline did continue 5. DVT prophylaxis ?Lovenox Charges/Coding Visit Charges Inpatient E&M: 17146 Subs Hosp L3
[2021-04-04] MEDS: hydroCHLOROthiazide 25 MG Tablet PO (08:13)
[2021-04-04] MEDS: dexAMETHasone 4 MG/ML Vial 6 MG IV (08:13)
[2021-04-04] MEDS: Lisinopril 10 MG Tablet PO (08:14)
[2021-04-04] MEDS: Aspirin 81 MG TAB.CHEW PO (08:14)
[2021-04-04] MEDS: Enoxaparin 30 MG/0.3 ML Syringe SC ×2 (08:14→21:12)
[2021-04-04] MEDS: Famotidine 20 MG Tablet PO ×2 (08:14→21:12)
[2021-04-04] MEDS: Sertraline 100 MG Tablet PO (08:14)
[2021-04-04] MEDS: 0.9% Saline Lock 10 ML Syringe IV (08:21)
--- NOTE | 2021-04-04 10:27 | CON.PCM.ID_ITS ---
Assessment & Plan Assessment/Plan (1) Pneumonia due to 2019 novel coronavirus: PLAN: Sx started 03/27/21, unvaccinated. also sick, did receive monoclonal Ab. On dex, remdesivir. Isolate for 20 days from start of symptoms. Reviewed EUA and risks/benefits with him, will start baricitinib. Recommend vaccine once out of iso. CT neg for PE. On lovenox 30mg bid. Will follow, thank you (2) Acute respiratory failure with hypoxia: HPI Consult Data Date of Consult: 04/04/21 HPI Narrative HPI Narrative: CHASITY HAYDEN, is a 70 M who presented 04/03 with weeks of cough, then 03/27 started with headache, fever, diarrhea, mild aches. also sick, also tested (+). He is unvaccinated. Went for monoclonal Ab but found to be hypoxic; his did get infusion. Came to ED, admitted on dex/remdesivir, O2 worsnening. Full ROS performed and neg except as noted above. FORMERLY [facility] Medical History Anxiety and depression Cancer Former tobacco use High cholesterol HTN (hypertension) Rheumatoid arthritis Home Medications atorvastatin 40 mg PO DAILY 04/24/15 [History Last Taken 03/29/21] hydrochlorothiazide 25 mg PO DAILY 04/24/15 [History Last Taken 03/29/21] lisinopril 10 mg tablet 10 mg PO DAILY 05/21/20 [History Last Taken 03/29/21] sertraline 100 mg tablet 100 mg PO DAILY 05/21/20 [History Last Taken 03/29/21] cyanocobalamin (vitamin B-12) [Vitamin B-12] 1,000 mcg PO DAILY 04/03/21 [History Last Taken 03/29/21] Allergy/AdvReac Type Severity Reaction Status Date / Time hydrocodone bitartrate AdvReac N/V Verified 04/03/21 16:40 [From Vicodin] Family History (Updated 04/03/21 @ 19:[address] Elsy Parisi MD) Mother Hypertension Family History other Surgical History (Updated 04/03/21 @ 19:[address] Elsy Parisi MD) History of back surgery Hx of umbilical hernia repair S/P appendectomy S/P carpal tunnel release S/P right hemicolectomy S/P tonsillectomy and adenoidectomy Social History (Updated 04/03/21 @ 19:[address] Elsy Parisi MD) household members: spouse Smoking Status: Former smoker how long ago did patient quit smoking: Quit 35 years ago, prior 1 ppd since teenager. alcohol intake: current alcohol intake frequency: holidays/special occasions only substance use type: does not use Physical Exam Const alert, oriented x3 and no apparent distress General Appearance: cooperative Exam Limitations: no limitations HEENT normocephalic and head/scalp atraumatic Eyes PERRL and EOMs intact bilaterally Neck supple and No nodes Resp Auscultation: diminished lung sounds Cardio regular rate and regular rhythm GI normal to inspection, nondistended, normoactive bowel sounds Extremity no clubbing, cyanosis or edema Skin no rashes or lesions noted Neuro CN's II-XII intact bilaterally Lab / Micro Data Result Diagrams: 04/04/21 04:15 04/04/21 04:15 Labs: Laboratory Results - last 24 hr 04/03/21 16:45: WBC 5.6, RBC 5.76, Hgb 17.7 H, Hct 52.2, MCV 90.6, MCH 30.7, MCHC 33.9, RDW Std Deviation 42.0, RDW Coeff of Raven 12.9, Plt Count 165, MPV 11.6, Immature Gran % (Auto) 0.500, Neut % (Auto) 75.6 H, Lymph % (Auto) 17.3 L, [place] % (Auto) 6.4, Eos % (Auto) 0.0, Baso % (Auto) 0.2, Absolute Neuts (auto) 4.2, Absolute Lymphs (auto) 0.97, Nucleated RBC % 0 04/03/21 16:45: D-Dimer Quant (PE/DVT) Cancelled 04/03/21 16:45: Sodium 136, Potassium 4.4, Chloride 101, Carbon Dioxide 27.0, Anion Gap 8, BUN 27 H, Creatinine 1.02, Estim Creat Clear Calc 75.02, Est GFR (MDRD) Af Amer 93, Est GFR (MDRD) Non-Af 77, BUN/Creatinine Ratio 26.5 H, Gluc ose 133 H, Calcium 8.6, Total Bilirubin 1.50 H, AST 115 H, ALT 42, Alkaline Phosphatase 102, Troponin I High Sens 16, C-React Prot Ext Range 89.50 H, Total Protein 8.5 H, Albumin 3.2, Globulin 5.3 H, Albumin/Globulin Ratio 0.6 L 04/03/21 18:08: D-Dimer Quant (PE/DVT) 2.54 H* 04/03/21 20:50: Ferritin 3782 H, Lactate Dehydrogenase 913 H 04/03/21 20:50: B-Natriuretic Peptide 39.0 04/03/21 20:50: Procalcitonin 0.11 H 04/04/21 04:15: WBC 4.0 L, RBC 5.32, Hgb 16.5, Hct 47.4, MCV 89.1, MCH 31.0, MCHC 34.8, RDW Std Deviation 41.4, RDW Coeff of Raven 12.6, Plt Count 160, MPV 10.4, Immature Gran % (Auto) 1.000 H, Neut % (Auto) 78.5 H, Lymph % (Auto) 14.6 L, [place] % (Auto) 5.9, Eos % (Auto) 0.0, Baso % (Auto) 0.0, Absolute Neuts (auto) 3.2, Absolute Lymphs (auto) 0.59 L, Nucleated RBC % 0, Differential Comment SCANNED, Diff Path Review October04/04/21 04:15: Sodium 138, Potassium 3.6, Chloride 103, Carbon Dioxide 26.0, Anion Gap 9, BUN 22 H, Creatinine 0.70, Estim Creat Clear Calc 76.52, Est GFR (MDRD) Af Amer 143, Est GFR (MDRD) Non-Af 118, BUN/Creatinine Ratio 31.2 H, Glucose 155 H, Calcium 8.1 L, Total Bilirubin 0.90, AST 76 H, ALT 35, Alkaline Phosphatase 89, Total Protein 7.1, Albumin 2.6 L, Globulin 4.5 H, Albumin/Globu cristofer Ratio 0.6 L 04/04/21 04:15: Alkaline Phosphatase Cancelled Micro: Microbiology 04/04/21 04:15 Urine, Clean Catch Legionella Antigen - Final 04/04/21 04:15 Urine, Clean Catch Streptococcus pneumoniae Antigen (M - Final 04/03/21 21:25 Mucosa - Nasopharyngeal Respiratory Panel (PCR) - Final ABG Data ABG results: ABG 04/03/21 17:24 Specimen Type ART Sample Site L Radial pH 7.44 Bicarbonate Actual 24.7 Total CO2 26 Base Excess 1 O2 Saturation 94 L ABG pCO2 36.8 ABG pO2 70 L Darián Test Positive O2 Delivery Device Cannula Liter Flow 7.0 Radiology Impression Chest CTA 04/03/21 16:59 IMPRESSION: No evidence for pulmonary embolus Findings consistent with diffuse Covid 19 pneumonia more severe in the lower lobes. ASHD without evidence for aortic aneurysm periaortic leak or dissection Electronically Signed: Romel Argueta MD at 18:44 EDT , Service support ,
[2021-04-04] MEDS: Cyanocobalamin 500 MCG Tablet 1000 MCG PO (10:28)
[2021-04-04] MEDS: Acetaminophen 325 MG Tablet 650 MG PO ×2 (10:33→21:12)
[2021-04-04 14:33] LABS: Pathologist Review Reviewed
--- NOTE | 2021-04-04 14:40 | CASEMGMT ---
RN CM [employer] CM to room to meet with patient for initial transition planning/care coordination assessment. RN JUANY introduced self and role at [facility]. Pt voices understanding and consents to assessment at this time. Pt sitting up in chair in room in no distress at this time. Pt is A/O at this time and answers all questions appropriately. Care providers, pharmacy, and demographics verified/updated at this time. COVID testing done @ PCP's office, Dr Shukri De León PCP:Dr De León Specialists:none Preferred Pharmacy:[facility] Insurance:[facility], [place] Prescription Benefit: yes Living Will/HPOA: Pt does not currently have LW/HCPOA and declines info LNOK: , Denise Living Arrangements: Lives w/ in one-story home w/2 steps to enter. Pt is independent w/ADL's. does most home mgmt tasks. Pt manages his own medications. Transportation: Pt states drives self and states no transportation concerns at this time. also drives DME: Denies using any DME. No pulse ox or home O2. Encouraged to get a pulse ox. Given list of local DME companies. Pt has no preference and states [employer] d/t affiliated w/[facility]. HHC/SNF: No history of either. Pt wishes to return home and states has no concerns with going home at time of discharge. CM to follow for home oxygen needs and any further discharge planning/needs. Pt voices no further concerns/needs at this time. Advised pt to ask for CM if any further questions/concerns/needs arise. Voices understanding. PLAN: Home. Follow for any Home O2 needs. Follow PT/OT. Khushi GALLARDO RN, CM
[2021-04-04] MEDS: Atorvastatin Calcium 40 MG Tablet PO (21:12)
[2021-04-04] MEDS: guaiFENesin 10 ML UDC (200MG/10ML) PO (21:12)
[2021-04-04] MEDS: MELATONIN 3 MG TABLET PO (21:12)
[2021-04-05] VITALS (32 sets, daily range): BP systolic 87–159; BP diastolic 56–140; PULSE 58–83; RESP 8–32; TEMP 36.2–36.8; O2SAT 86–97
[2021-04-05 04:14] LABS: Hematocrit 44.6 % (40-54); Hemoglobin 15.7 g/dL (13.0-16.5); Mean Corp Hgb Conc 35.2 g/dL (32-36); Mean Corpuscular Hgb 31.2 pg (27.0-32.0); Mean Corpuscular Volume 88.7 fL (80-94); Mean Platelet Vol. 10.5 fl (6.2-12.0); Platelet Count 192 K/mm3 (150-450); RBC Distribution Width CV 12.7 % (11.6-14.6); RBC Distribution Width SD 41.4 fl (35.1-43.9); Red Blood Count 5.03 M/mm3 (4.6-6.2)
[2021-04-05 04:48] LABS: ALB/GLOB Ratio 0.6 RATIO (0.9-2.4); AST(SGOT) 73 U/L (15-37); Alanine Aminotransfer ALT/SGPT 48 U/L (16-61); Albumin, Serum 2.5 g/dL (3.2-5.0); Alkaline Phosphatase 87 U/L (45-117); Anion Gap 9 (5-15); BUN 31 mg/dL (7-18); BUN/Creat Ratio 40.4 RATIO (10-20); Chloride 103 mmol/L (98-107); Creatinine, Serum 0.77 mg/dL (0.70-1.30); EST Glomerular Filtration Rate 107 mL/min (>60); Est Glom Filt Rate - Afr Amer 129 mL/min (>60); Estimated Creatinine Clearance 76.52 ml/min; Glucose 130 mg/dL (74-106); Potassium 3.5 mmol/L (3.5-5.1); Protein, Total 6.5 g/dL (6.4-8.2); Sodium Level 138 mmol/L (136-145)
--- NOTE | 2021-04-05 06:16 | PN.CC_ITS ---
Assessment & Plan Assessment/Plan (1) Acute respiratory failure with hypoxia: (2) Pneumonia due to 2019 novel coronavirus: PLAN: RECOMMENDATIONS: 1. Continue AVAPS therapy and wean FiO2 to maintain oxygen saturations at or above 90%. 2. Continue Decadron to complete 10-day treatment course. 3. Continue remdesivir. Continue to monitor liver and renal function. 4. Continue prophylactic Lovenox. 5. Continue baricitinib to complete treatment course. 6. Utilize IV Lasix as needed to maintain euvolemic state. Will give lasix today. 7. Awake prone positioning was encouraged. 8. The patient is at high risk for intubation need in the next 24 hours. IMPRESSIONS: 1. Acute hypoxemic respiratory failure secondary to COVID-19 pneumonia Although the patient was initially referred to receive the monoclonal therapy on an outpatient basis, he became hypoxemic and required inpatient hospitalization. He has had a rapid decline in his respiratory status with increasing oxygen demand, necessitating ICU transfer. The patient will be continued on noninvasive positive pressure ventilatory support as tolerated. FiO2 will be weaned to maintain oxygen saturations at or above 90%. The patient will be continued on remdesivir, baricitinib, Decadron and prophylactic Lovenox. IV Lasix can be utilized as needed to maintain euvolemic state. If the patient does not begin to demonstrate improvement in his oxygenation status in the next 24 hours, he would be at high risk for the need for intubation. 2. Hypertension/hyperlipidemia/depression/anxiety Complicates care, management, recovery and prognosis. Continue home medications as indicated. TIME: 34 minutes of critical care time, independent of procedures, was spent addressing the patient's acute hypoxemic respiratory failure secondary to COVID- 19 pneumonia, review of all data and collaboration with the care team. ([id number]) Subjective Subjective The patient was seen and examined at the bedside this morning. Events from the last 24 hours have been reviewed. The patient is currently afebrile, hemodynamically stable and maintaining appropriate oxygen saturations on AVAPS with an FiO2 requirement of 90%. The patient is currently documented to be overall net +1.4 L for the hospitalization. The patient remains on remdesivir, Decadron, prophylactic Lovenox and baricitinib. Liver and renal function are stable. Objective Data Objective Data The patient's most recent lab work, culture data and imaging studies have all been personally reviewed. Respiratory viral panel was negative. Strep and urine Legionella antigens were negative. Vital Signs: Vital Signs Temp Pulse Resp BP Pulse Ox 97.1 F L 64 26 H 144/90 H 92 04/05/21 00:00 04/05/21 06:00 04/05/21 06:00 04/05/21 06:00 04/05/21 06:00 Oxygen Flow Rate (L/min) 60 Oxygen Delivery Method Bi-pap Weight: 86.8 kg Body Mass Index (BMI) 25.7 Intake & Output: Intake and Output for Last 24 Hours 04/03/21 04/04/21 04/05/21 23:59 23:59 23:59 Intake Total 300 / 300 1945 / 1945 Output Total 800 / 800 Balance 300 / 150 1145 / 1145 Medical Nutrition Assessment Dietitian: Malnutrition Criteria Met Start: 04/04/21 11:34 Freq: Status: Active Protocol: Document 04/04/21 11:34 AG (Rec: 04/04/21 11:34 AG [id number]) Nutrition Malnutrition Evidence of Malnutrition Exists Yes Malnutrition (severe): Acute Illness/Injury Evidenced By Suboptimal Energy Intake ( Severe),Weight Loss (Severe) Clinical Problem Acute Disease or Injury Related Malnutrition Etiology severe acute malnutrition r/t inadequate energy intake d/t decreased appetite w/ acute illness Signs/Symptoms as evidenced by estimated PO intake meeting <50% of estimated nutritional needs x 10 days; unintentional wt loss of 11#/5.5% <2 weeks. Status Active Problem Recommendation Dietitian Recommendations/Changes will change diet to regular d/ t acute malnutrition; 4oz ensure compact w/ meals for additional calories/protein if consumed. Lab / Micro Data Attestation: I reviewed the patient's lab results. Result Diagrams: 04/05/21 04:00 04/05/21 04:00 Labs: Laboratory Results - last 24 hr 04/04/21 04:15: Differential Comment SCANNED, Diff Path Review Reviewed 04/04/21 04:15: Alkaline Phosphatase Cancelled 04/05/21 04:00: WBC 8.0, RBC 5.03, Hgb 15.7, Hct 44.6, MCV 88.7, MCH 31.2, MCHC 35.2, RDW Std Deviation 41.4, RDW Coeff of Raven 12.7, Plt Count 192, MPV 10.5 04/05/21 04:00: Sodium 138, Potassium 3.5, Chloride 103, Carbon Dioxide 26.0, A nion Gap 9, BUN 31 H, Creatinine 0.77, Estim Creat Clear Calc 76.52, Est GFR (MDRD) Af Amer 129, Est GFR (MDRD) Non-Af 107, BUN/Creatinine Ratio 40.4 H, Glucose 130 H, Calcium 8.0 L, Total Bilirubin 0.90, AST 73 H, ALT 48, Alkaline Phosphatase 87, Total Protein 6.5, Albumin 2.5 L, Globulin 4.0, Albumin/Globulin Ratio 0.6 L Micro: Microbiology 04/04/21 04:15 Urine, Clean Catch Legionella Antigen - Final 04/04/21 04:15 Urine, Clean Catch Streptococcus pneumoniae Antigen (M - Final 04/03/21 21:25 Mucosa - Nasopharyngeal Respiratory Panel (PCR) - Final Physical Exam Const alert General Appearance: cooperative, comfortable and on BiPAP HEENT normocephalic and head/scalp atraumatic Eyes PERRL, EOMs intact bilaterally and conjunctivae normal Neck supple General: trachea midline Chest inspection of chest normal Resp Effort and Inspection: tachypneic Auscultation: Negative for rales, rhonchi or wheezes Cardio regular rate and regular rhythm GI normal to inspection, nondistended, normoactive bowel sounds Extremity no clubbing, cyanosis or edema Skin no rashes or lesions noted Neuro CN's II-XII intact bilaterally, moves all extremities and no focal motor deficits Psych cooperative and affect normal Charges/Coding Procedures Hospitalists Procedures: [id number] Critial Care 1st Hr
[2021-04-05] MEDS: 0.9% Saline Lock 10 ML Syringe IV (06:47)
[2021-04-05] MEDS: Furosemide 40 MG/4 ML Vial IV (06:47)
--- NOTE | 2021-04-05 07:18 | PCM.PN.HOSP ---
Subjective Subjective Patient respiratory status deteriorated resulting in patient being placed on noninvasive ventilation BiPAP with FiO2 of 65% Objective Data Objective Data Vital Signs: Vital Signs Temp Pulse Resp BP Pulse Ox 97.1 F L 67 26 H 135/94 H 95 04/05/21 00:00 04/05/21 07:00 04/05/21 07:00 04/05/21 07:00 04/05/21 07:00 Oxygen Flow Rate (L/min) 60 Oxygen Delivery Method Bi-pap Weight: 86.8 kg Body Mass Index (BMI) 25.7 Intake & Output: Intake and Output for Last 24 Hours 04/03/21 04/04/21 04/05/21 23:59 23:59 23:59 Intake Total 300 / 300 1945 / 1945 Output Total 800 / 800 Balance 300 / 150 1145 / 1145 Medical Nutrition Assessment Dietitian: Malnutrition Criteria Met Start: 04/04/21 11:34 Freq: Status: Active Protocol: Document 04/04/21 11:34 AG (Rec: 04/04/21 11:34 [email or web address]) Nutrition Malnutrition Evidence of Malnutrition Exists Yes Malnutrition (severe): Acute Illness/Injury Evidenced By Suboptimal Energy Intake ( Severe),Weight Loss (Severe) Clinical Problem Acute Disease or Injury Related Malnutrition Etiology severe acute malnutrition r/t inadequate energy intake d/t decreased appetite w/ acute illness Signs/Symptoms as evidenced by estimated PO intake meeting <50% of estimated nutritional needs x 10 days; unintentional wt loss of 11#/5.5% <2 weeks. Status Active Problem Recommendation Dietitian Recommendations/Changes will change diet to regular d/ t acute malnutrition; 4oz ensure compact w/ meals for additional calories/protein if consumed. Lab / Micro Data Result Diagrams: 04/05/21 04:00 04/05/21 04:00 Labs: Laboratory Results - last 24 hr 04/04/21 04:15: Diff Path Review Reviewed 04/04/21 04:15: Alkaline Phosphatase Cancelled 04/05/21 04:00: WBC 8.0, RBC 5.03, Hgb 15.7, Hct 44.6, MCV 88.7, MCH 31.2, MCHC 35.2, RDW Std Deviation 41.4, RDW Coeff of Raven 12.7, Plt Count 192, MPV 10.5 04/05/21 04:00: Sodium 138, Potassium 3.5, Chloride 103, Carbon Dioxide 26.0, Anion Gap 9, BUN 31 H, Creatinine 0.77, Estim Creat Clear Calc 76.52, Est GFR (MDRD) Af Amer 129, Est GFR (MDRD) Non-Af 107, BUN/Creatinine Ratio 40.4 H, Glucose 130 H, Calcium 8.0 L, Total Bilirubin 0.90, AST 73 H, ALT 48, Alkaline Phosphatase 87, Total Protein 6.5, Albumin 2.5 L, Globulin 4.0, Albumin/Globulin Ratio 0.6 L Micro: Microbiology 04/04/21 04:15 Urine, Clean Catch Legionella Antigen - Final 04/04/21 04:15 Urine, Clean Catch Streptococcus pneumoniae Antigen (M - Final 04/03/21 21:25 Mucosa - Nasopharyngeal Respiratory Panel (PCR) - Final Physical Exam Narrative GENERAL: Appears ill looking and dyspneic at rest HEENT: Atraumatic; EYES; Anicteric, Normal Conjunctiva NECK; supple, normal thyroid, RESPIRATORY: Diminished to auscultation CARDIOVASCULAR: Regular S1 S2, GI: soft, normoactive bowel sounds, : No Renal angle tenderness; EXTREMITIES: No edema, no clubbing, MUSCULOSKELETAL: no muscle waisting NEURO: Awake; no lateralizing signs. SKIN: No Rash PSYCH; Flat affect Assessment & Plan Assessment/Plan (1) Pneumonia due to 2019 novel coronavirus: (2) Acute respiratory failure with hypoxia: PLAN: Patient is a 70-year-old M unvaccinated against COVID-19 who presented with progressive shortness of breath. Patient tested positive for Covid on 03/29/2021 his symptoms had started on 03/27/2021. He did receive monoclonal antibody infusion as outpatient however presented with worsening symptoms 1. Acute hypoxic respiratory failure secondary to SARS-CoV-2 pneumonia ?. Patient was transferred to the intensive care unit due to rapidly deteriorating oxygen levels. Was placed on noninvasive ventilation Airvo 40 L/min with FiO2 of 80%. Patient was started on remdesivir on admission did continue also on Decadron consulted ID for initiation of baricitinib -04/05/2021; Patient respiratory status deteriorated resulting in patient being placed on noninvasive ventilation BiPAP with FiO2 of 65% 2. Hypertension - Blood pressure controlled, home medications continued with dose adjustment as needed 3. Dyslipidemia -Patient is on statin therapy, continued at home dose 4. Depression with anxiety ?Patient is on sertraline did continue 5. DVT prophylaxis ?Lovetaliax Charges/Coding Visit Charges Inpatient E&M: 17706 Subs Hosp L3
[2021-04-05] MEDS: Sertraline 100 MG Tablet PO (07:53)
[2021-04-05] MEDS: Enoxaparin 30 MG/0.3 ML Syringe SC ×2 (07:53→21:21)
[2021-04-05] MEDS: Cyanocobalamin 500 MCG Tablet 1000 MCG PO (07:54)
[2021-04-05] MEDS: dexAMETHasone 4 MG/ML Vial 6 MG IV (07:54)
[2021-04-05] MEDS: Famotidine 20 MG Tablet PO (07:54)
[2021-04-05] MEDS: Aspirin 81 MG TAB.CHEW PO (07:54)
[2021-04-05] MEDS: Lisinopril 10 MG Tablet PO (10:00)
[2021-04-05] MEDS: hydroCHLOROthiazide 25 MG Tablet PO (10:00)
[2021-04-06] VITALS (37 sets, daily range): BP systolic 102–151; BP diastolic 52–96; PULSE 78–116; RESP 14–32; TEMP 36.1–36.8; O2SAT 88–95
[2021-04-06 04:46] LABS: Hematocrit 49.9 % (40-54); Hemoglobin 17.6 g/dL (13.0-16.5); Mean Corp Hgb Conc 35.3 g/dL (32-36); Mean Corpuscular Hgb 31.4 pg (27.0-32.0); Mean Corpuscular Volume 89.1 fL (80-94); Mean Platelet Vol. 10.2 fl (6.2-12.0); Platelet Count 328 K/mm3 (150-450); RBC Distribution Width CV 12.9 % (11.6-14.6); RBC Distribution Width SD 42.3 fl (35.1-43.9); White Blood Count 16.4 K/mm3 (4.4-11.0)
[2021-04-06 05:06] LABS: ALB/GLOB Ratio 0.7 RATIO (0.9-2.4); AST(SGOT) 78 U/L (15-37); Alanine Aminotransfer ALT/SGPT 48 U/L (16-61); Albumin, Serum 2.8 g/dL (3.2-5.0); Alkaline Phosphatase 106 U/L (45-117); Anion Gap 8 (5-15); BUN 31 mg/dL (7-18); BUN/Creat Ratio 34.3 RATIO (10-20); Calcium,Total 7.9 mg/dL (8.5-10.1); Chloride 104 mmol/L (98-107); EST Glomerular Filtration Rate 89 mL/min (>60); Est Glom Filt Rate - Afr Amer 107 mL/min (>60); Estimated Creatinine Clearance 85.02 ml/min; Globulin 4.3 g/dL (2.2-4.2); Glucose 100 mg/dL (74-106); Potassium 3.6 mmol/L (3.5-5.1); Protein, Total 7.1 g/dL (6.4-8.2); Sodium Level 139 mmol/L (136-145)
--- NOTE | 2021-04-06 06:02 | PN.CC_ITS ---
Assessment & Plan Assessment/Plan (1) Acute respiratory failure with hypoxia: (2) Pneumonia due to 2019 novel coronavirus: PLAN: RECOMMENDATIONS: 1. Continue AVAPS therapy and wean FiO2 to maintain oxygen saturations at or above 90%. 2. Continue Decadron to complete 10-day treatment course. 3. Continue remdesivir. Continue to monitor liver and renal function. 4. Continue prophylactic Lovenox. 5. Continue baricitinib to complete treatment course. 6. Utilize IV Lasix as needed to maintain euvolemic state. Will give lasix again today. 7. Awake prone positioning was encouraged. 8. The patient is at high risk for intubation. IMPRESSIONS: 1. Acute hypoxemic respiratory failure secondary to COVID-19 pneumonia Although the patient was initially referred to receive the monoclonal therapy on an outpatient basis, he became hypoxemic and required inpatient hospitalization. He has had a rapid decline in his respiratory status with increasing oxygen demand, necessitating ICU transfer. The patient will be continued on noninv asive positive pressure ventilatory support as tolerated. FiO2 will be weaned to maintain oxygen saturations at or above 90%. The patient will be continued on remdesivir, baricitinib, Decadron and prophylactic Lovenox. IV Lasix can be utilized as needed to maintain euvolemic state. If the patient does not begin to demonstrate improvement in his oxygenation status, he would be at high risk for the need for intubation. 2. Hypertension/hyperlipidemia/depression/anxiety Complicates care, management, recovery and prognosis. Continue home medications as indicated. TIME: 33 minutes of critical care time, independent of procedures, was spent addressing the patient's acute hypoxemic respiratory failure secondary to COVID- 19 pneumonia, review of all data and collaboration with the care team. ([id number]) Subjective Subjective The patient was seen and examined at the bedside this morning. Events from the last 24 hours have been reviewed. The patient is currently afebrile, hemodynamically stable and maintaining appropriate oxygen saturations on AVAPS with an FiO2 requirement of 75%. When attempt was made to transition the patient to Airvo heated high flow, he readily desaturated. The patient is currently documented to be overall net +500 mL for the hospital admission. The patient remains on remdesivir, Decadron, prophylactic Lovenox and baricitinib. White count is elevated this morning at 16,000. Liver and renal function are stable. Objective Data Objective Data The patient's most recent lab work, culture data and imaging studies have all been personally reviewed. Respiratory viral panel was negative. Strep and urine Legionella antigens were negative. Vital Signs: Vital Signs Temp Pulse Resp BP Pulse Ox 98.2 F 90 22 H 138/88 H 91 04/06/21 04:00 04/06/21 04:40 04/06/21 04:40 04/06/21 04:00 04/06/21 04:40 Oxygen Flow Rate (L/min) 60 Oxygen Delivery Method Bi-pap Weight: 86.8 kg Body Mass Index (BMI) 25.7 Intake & Output: Intake and Output for Last 24 Hours 04/04/21 04/05/21 04/06/21 23:59 23:59 23:59 Intake Total 1945 / 1945 370 / 370 200 / 200 Output Total 800 / 800 850 / 850 700 / 700 Balance 1145 / 1145 -480 / -480 -500 / -500 Medical Nutrition Assessment Dietitian: Malnutrition Criteria Met Start: 04/04/21 11:34 Freq: Status: Active Protocol: Document 04/04/21 11:34 AG (Rec: 04/04/21 11:34 [email or web address]) Nutrition Malnutrition Evidence of Malnutrition Exists Yes Malnutrition (severe): Acute Illness/Injury Evidenced By Suboptimal Energy Intake ( Severe),Weight Loss (Severe) Clinical Problem Acute Disease or Injury Related Malnutrition Etiology severe acute malnutrition r/t inadequate energy intake d/t decreased appetite w/ acute illness Signs/Symptoms as evidenced by estimated PO intake meeting <50% of estimated nutritional needs x 10 days; unintentional wt loss of 11#/5.5% <2 weeks. Status Active Problem Recommendation Dietitian Recommendations/Changes will change diet to regular d/ t acute malnutrition; 4oz ensure compact w/ meals for additional calories/protein if consumed. Lab / Micro Data Attestation: I reviewed the patient's lab results. Result Diagrams: 04/06/21 04:30 04/06/21 04:30 Labs: Laboratory Results - last 24 hr 04/06/21 04:30: WBC 16.4 H, RBC 5.60, Hgb 17.6 H, Hct 49.9, MCV 89.1, MCH 31.4, MCHC 35.3, RDW Std Deviation 42.3, RDW Coeff of Raven 12.9, Plt Count 328, MPV 10.2 04/06/21 04:30: Sodium 139, Potassium 3.6, Chloride 104, Carbon Dioxide 27.0, Anion Gap 8, BUN 31 H, Creatinine 0.90, Estim Creat Clear Calc 85.02, Est GFR (MDRD) Af Amer 107, Est GFR (MDRD) Non-Af 89, BUN/Creatinine Ratio 34.3 H, Glucose 100, Calcium 7.9 L, Total Bilirubin 1.30 H, AST 78 H, ALT 48, Alkaline Phosphatase 106, Total Protein 7.1, Albumin 2.8 L, Globulin 4.3 H, Albumin/Globulin Ratio 0.7 L Micro: Microbiology 04/04/21 04:15 Urine, Clean Catch Legionella Antigen - Final 04/04/21 04:15 Urine, Clean Catch Streptococcus pneumoniae Antigen (M - Fin al 04/03/21 21:25 Mucosa - Nasopharyngeal Respiratory Panel (PCR) - Final Physical Exam Const alert General Appearance: cooperative and on BiPAP HEENT normocephalic and head/scalp atraumatic Eyes PERRL, EOMs intact bilaterally and conjunctivae normal Neck supple General: trachea midline Chest inspection of chest normal Resp Effort and Inspection: tachypneic Auscultation: Negative for rales, rhonchi or wheezes Cardio regular rate and regular rhythm GI normal to inspection, nondistended, normoactive bowel sounds Extremity no clubbing, cyanosis or edema Skin no rashes or lesions noted Neuro CN's II-XII intact bilaterally, moves all extremities and no focal motor deficits Psych cooperative and affect normal Charges/Coding Procedures Hospitalists Procedures: [id number] Critial Care 1st Hr
--- NOTE | 2021-04-06 07:10 | PCM.PN.HOSP ---
Subjective Subjective Patient remains in ICU apparently desaturated when placed on Airvo currently back on AVAPS with FiO2 of 75% Objective Data Objective Data Vital Signs: Vital Signs Temp Pulse Resp BP Pulse Ox 98.2 F 96 27 H 143/89 H 91 04/06/21 04:00 04/06/21 07:05 04/06/21 07:05 04/06/21 07:00 04/06/21 07:05 Oxygen Flow Rate (L/min) 60 Oxygen Delivery Method Bi-pap Weight: 87.1 kg Body Mass Index (BMI) 25.7 Intake & Output: Intake and Output for Last 24 Hours 04/04/21 04/05/21 04/06/21 23:59 23:59 23:59 Intake Total 1945 / 1945 370 / 370 200 / 200 Output Total 800 / 800 850 / 850 825 / 825 Balance 1145 / 1145 -480 / -480 -625 / -625 Medical Nutrition Assessment Dietitian: Malnutrition Criteria Met Start: 04/04/21 11:34 Freq: Status: Active Protocol: Document 04/04/21 11:34 AG (Rec: 04/04/21 11:34 [id number]) Nutrition Malnutrition Evidence of Malnutrition Exists Yes Malnutrition (severe): Acute Illness/Injury Evidenced By Suboptimal Energy Intake ( Severe),Weight Loss (Severe) Clinical Problem Acute Disease or Injury Related Malnutrition Etiology severe acute malnutrition r/t inadequate energy intake d/t decreased appetite w/ acute illness Signs/Symptoms as evidenced by estimated PO intake meeting <50% of estimated nutritional needs x 10 days; unintentional wt loss of 11#/5.5% <2 weeks. Status Active Problem Recommendation Dietitian Recommendations/Changes will change diet to regular d/ t acute malnutrition; 4oz ensure compact w/ meals for additional calories/protein if consumed. Lab / Micro Data Result Diagrams: 04/06/21 04:30 04/06/21 04:30 Labs: Laboratory Results - last 24 hr 04/06/21 04:30: WBC 16.4 H, RBC 5.60, Hgb 17.6 H, Hct 49.9, MCV 89.1, MCH 31.4, MCHC 35.3, RDW Std Deviation 42.3, RDW Coeff of Raven 12.9, Plt Count 328, MPV 10.2 04/06/21 04:30: Sodium 139, Potassium 3.6, Chloride 104, Carbon Dioxide 27.0, Anion Gap 8, BUN 31 H, Creatinine 0.90, Estim Creat Clear Calc 85.02, Est GFR (MDRD) Af Amer 107, Est GFR (MDRD) Non-Af 89, BUN/Creatinine Ratio 34.3 H, Glucose 100, Calcium 7.9 L, Total Bilirubin 1.30 H, AST 78 H, ALT 48, Alkaline Phosphatase 106, Total Protein 7.1, Albumin 2.8 L, Globulin 4.3 H, Albumin/Globulin Ratio 0.7 L Micro: Microbiology 04/04/21 04:15 Urine, Clean Catch Legionella Antigen - Final 04/04/21 04:15 Urine, Clean Catch Streptococcus pneumoniae Antigen (M - Final 04/03/21 21:25 Mucosa - Nasopharyngeal Respiratory Panel (PCR) - Final Physical Exam Narrative GENERAL: Appears ill looking and dyspneic at rest HEENT: Atraumatic; EYES; Anicteric, Normal Conjunctiva NECK; supple, normal thyroid, RESPIRATORY: Diminished to auscultation CARDIOVASCULAR: Regular S1 S2, GI: soft, normoactive bowel sounds, : No Renal angle tenderness; EXTREMITIES: No edema, no clubbing, MUSCULOSKELETAL: no muscle waisting NEURO: Awake; no lateralizing signs. SKIN: No Rash PSYCH; Flat affect Assessment & Plan Assessment/Plan (1) Pneumonia due to 2019 novel coronavirus: (2) Acute respiratory failure with hypoxia: PLAN: Patient is a 70-year-old M unvaccinated against COVID-19 who presented with progressive shortness of breath. Patient tested positive for Covid on 03/29/2021 his symptoms had started on 03/27/2021. He did receive monoclonal antibody infusion as outpatient however presented with worsening symptoms 1. Acute hypoxic respiratory failure secondary to SARS-CoV-2 pneumonia ?. Patient was transferred to the intensive care unit due to rapidly deteriorating oxygen levels. Was placed on noninvasive ventilation Airvo 40 L/min with FiO2 of 80%. Patient was started on remdesivir on admission did continue also on Decadron consulted ID for initiation of baricitinib -04/05/2021; Patient respiratory status deteriorated resulting in patient being placed on noninvasive ventilation BiPAP with FiO2 of 65% -04/06/2021;Patient remains in ICU apparently desaturated when placed on Airvo currently back on AVAPS with FiO2 of 75% 2. Hypertension - Blood pressure controlled, home medications continued with dose adjustment as needed 3. Dyslipidemia -Patient is on statin therapy, continued at home dose 4. Depression with anxiety ?Patient is on sertraline did continue 5. DVT prophylaxis ?Girish Charges/Coding Visit Charges Inpatient E&M: 22579 Subs Hosp L3
[2021-04-06] MEDS: Enoxaparin 30 MG/0.3 ML Syringe SC ×2 (08:20→20:17)
[2021-04-06] MEDS: dexAMETHasone 4 MG/ML Vial 6 MG IV (08:20)
[2021-04-06] MEDS: 0.9% Saline Lock 10 ML Syringe IV (08:21)
[2021-04-06] MEDS: Furosemide 40 MG/4 ML Vial IV (08:21)
[2021-04-06] MEDS: CHLORHEXIDINE GLUC 2% CLOTH 1 EACH TOWELETTE TOPICAL (08:21)
[2021-04-06] MEDS: Aspirin 81 MG TAB.CHEW PO (10:49)
[2021-04-06] MEDS: Sertraline 100 MG Tablet PO (10:49)
[2021-04-06] MEDS: Cyanocobalamin 500 MCG Tablet 1000 MCG PO (10:49)
[2021-04-06] MEDS: Famotidine 20 MG Tablet PO ×2 (10:49→20:17)
[2021-04-06] MEDS: hydroCHLOROthiazide 25 MG Tablet PO (10:49)
[2021-04-06] MEDS: Lisinopril 10 MG Tablet PO (10:49)
[2021-04-06] MEDS: Atorvastatin Calcium 40 MG Tablet PO (20:17)
[2021-04-07] VITALS (61 sets, daily range): BP systolic 72–193; BP diastolic 53–132; PULSE 68–175; RESP 14–40; TEMP 35.7–36.9; O2SAT 78–95
[2021-04-07 04:47] LABS: Hematocrit 49.6 % (40-54); Hemoglobin 17.4 g/dL (13.0-16.5); Mean Corp Hgb Conc 35.1 g/dL (32-36); Mean Corpuscular Hgb 31.4 pg (27.0-32.0); Mean Corpuscular Volume 89.4 fL (80-94); Mean Platelet Vol. 9.8 fl (6.2-12.0); Platelet Count 301 K/mm3 (150-450); RBC Distribution Width CV 13.1 % (11.6-14.6); RBC Distribution Width SD 43.2 fl (35.1-43.9); Red Blood Count 5.55 M/mm3 (4.6-6.2); White Blood Count 9.2 K/mm3 (4.4-11.0)
[2021-04-07 05:26] LABS: ALB/GLOB Ratio 0.5 RATIO (0.9-2.4); AST(SGOT) 86 U/L (15-37); Alanine Aminotransfer ALT/SGPT 60 U/L (16-61); Albumin, Serum 2.5 g/dL (3.2-5.0); Alkaline Phosphatase 103 U/L (45-117); Anion Gap 9 (5-15); BUN 36 mg/dL (7-18); Calcium,Total 8.1 mg/dL (8.5-10.1); Chloride 100 mmol/L (98-107); EST Glomerular Filtration Rate 79 mL/min (>60); Est Glom Filt Rate - Afr Amer 95 mL/min (>60); Estimated Creatinine Clearance 76.52 ml/min; Globulin 4.6 g/dL (2.2-4.2); Glucose 116 mg/dL (74-106); Potassium 3.7 mmol/L (3.5-5.1); Protein, Total 7.1 g/dL (6.4-8.2); Sodium Level 137 mmol/L (136-145)
--- NOTE | 2021-04-07 05:40 | PN.CC_ITS ---
Assessment & Plan Assessment/Plan (1) Acute respiratory failure with hypoxia: (2) Pneumonia due to 2019 novel coronavirus: PLAN: RECOMMENDATIONS: 1. Continue AVAPS therapy and wean FiO2 to maintain oxygen saturations at or above 90%. 2. Attempt to transition the patient to Airvo heated high flow, if feasible. 3. Continue Decadron to complete 10-day treatment course. 4. Continue remdesivir. Continue to monitor liver and renal function. 5. Continue prophylactic Lovenox. 6. Continue baricitinib to complete treatment course. 7. Utilize IV Lasix as needed to maintain euvolemic state. 8. Awake prone positioning was encouraged. IMPRESSIONS: 1. Acute hypoxemic respiratory failure secondary to COVID-19 pneumonia Although the patient was initially referred to receive the monoclonal therapy on an outpatient basis, he became hypoxemic and required inpatient hospitalization. He has had a rapid decline in his respiratory status with increasing oxygen demand, necessitating ICU transfer. The patient will be continued on shanel nvasive positive pressure ventilatory support as tolerated. FiO2 will be weaned to maintain oxygen saturations at or above 90%. The patient will be continued on remdesivir, baricitinib, Decadron and prophylactic Lovenox. IV Lasix can be utilized as needed to maintain euvolemic state. Will attempt to transition the patient to Airvo heated high flow today. 2. Hypertension/hyperlipidemia/depression/anxiety Complicates care, management, recovery and prognosis. Continue home medications as indicated. TIME: 32 minutes of critical care time, independent of procedures, was spent addressing the patient's acute hypoxemic respiratory failure secondary to COVID- 19 pneumonia, review of all data and collaboration with the care team. ([id number]) Subjective Subjective The patient was seen and examined at the bedside this morning. Events from the last 24 hours have been reviewed. The patient is currently afebrile, hemodynamically stable and maintaining appropriate oxygen saturations on AVAPS with an FiO2 requirement of 80%. The patient readily desaturates when he is removed from BiPAP. The patient is currently documented to be overall net -600 mL for the hospital admission. The patient remains on remdesivir, Decadron, prophylactic Lovenox and baricitinib. Liver and renal function are stable. Objective Data Objective Data The patient's most recent lab work, culture data and imaging studies have all been personally reviewed. Respiratory viral panel was negative. Strep and urine Legionella antigens were negative. Vital Signs: Vital Signs Temp Pulse Resp BP Pulse Ox 97.9 F 106 H 21 H 159/100 H 91 04/07/21 04:00 04/07/21 04:36 04/07/21 04:36 04/07/21 04:00 04/07/21 04:36 Oxygen Flow Rate (L/min) 60 Oxygen Delivery Method Bi-pap Weight: 87.1 kg Body Mass Index (BMI) 25.7 Intake & Output: Intake and Output for Last 24 Hours 04/05/21 04/06/21 04/07/21 23:59 23:59 23:59 Intake Total 370 / 370 930 / 930 200 / 200 Output Total 850 / 850 2225 / 2225 500 / 500 Balance -480 / -480 -1295 / -1295 -300 / -300 Medical Nutrition Assessment Dietitian: Malnutrition Criteria Met Start: 04/04/21 11:34 Freq: Status: Active Protocol: Document 04/06/21 10:38 AG (Rec: 04/06/21 10:38 [id number]) Nutrition Malnutrition Evidence of Malnutrition Exists Yes Malnutrition (severe): Acute Illness/Injury Evidenced By Suboptimal Energy Intake ( Severe),Weight Loss (Severe) Clinical Problem Acute Disease or Injury Related Malnutrition Etiology severe acute malnutrition r/t inadequate energy intake d/t decreased appetite w/ acute illness Signs/Symptoms as evidenced by estimated PO intake meeting <50% of estimated nutritional needs x 12 days; unintentional wt loss of 11#/5.5% <2 weeks. Status Active Problem Recommendation Dietitian Recommendations/Changes NPO per Dr. Rizo; recommend regular diet d/t acute malnutrition and 4oz ensure compact w/ meals for additional calories/protein if consumed. Lab / Micro Data Attestation: I reviewed the patient's lab results. Result Diagrams: 04/07/21 04:20 04/07/21 04:20 Labs: Laboratory Results - last 24 hr 04/07/21 04:20: WBC 9.2, RBC 5.55, Hgb 17.4 H, Hct 49.6, MCV 89.4, MCH 31.4, MCHC 35.1, RDW Std Deviation 43.2, RDW Coeff of Raven 13.1, Plt Count 301, MPV 9.8 04/07/21 04:20: Sodium 137, Potassium 3.7, Chloride 100, Carbon Dioxide 28.0, Anion Gap 9, BUN 36 H, Creatinine 1.00, Estim Creat Clear Calc 76.52, Est GFR (MDRD) Af Amer 95, Est GFR (MDRD) Non-Af 79, BUN/Creatinine Ratio 36.0 H, Glucose 116 H, Calcium 8.1 L, Total Bilirubin 1.60 H, AST 86 H, ALT 60, Alkaline Phosphatase 103, Total Protein 7.1, Albumin 2.5 L, Globulin 4.6 H, Albumin/Globulin Ratio 0.5 L Micro: Microbiology 04/04/21 04:15 Urine, Clean Catch Legionella Antigen - Final 04/04/21 04:15 Urine, Clean Catch Streptococcus pneumoniae Antigen (M - Final 04/03/21 21:25 Mucosa - Nasopharyngeal Respiratory Panel (PCR) - Final Physical Exam Const alert General Appearance: cooperative and on BiPAP HEENT normocephalic and head/scalp atraumatic Eyes PERRL, EOMs intact bilaterally and conjunctivae normal Neck supple General: trachea midline Chest inspection of chest normal Resp Effort and Inspection: tachypneic Auscultation: Negative for rales, rhonchi or wheezes Cardio S1 normal heart sound and S2 normal heart sound Rate: tachycardic GI normal to inspection, nondistended, normoactive bowel sounds Extremity no clubbing, cyanosis or edema Skin no rashes or lesions noted Neuro CN's II-XII intact bilaterally, moves all extremities and no focal motor deficits Psych cooperative and affect normal Charges/Coding Procedures Hospitalists Procedures: 49830 Critial Care 1st Hr
--- NOTE | 2021-04-07 07:45 | PN.HOSP_ITS ---
Subjective Subjective Patient seen no change in condition with still requiring high flow oxygen via BiPAP Objective Data Objective Data Vital Signs: Vital Signs Temp Pulse Resp BP Pulse Ox 97.9 F 115 H 27 H 151/93 H 90 04/07/21 04:00 04/07/21 07:00 04/07/21 06:00 04/07/21 06:00 04/07/21 06:00 Oxygen Flow Rate (L/min) 60 Oxygen Delivery Method Bi-pap Weight: 87.1 kg Body Mass Index (BMI) 25.7 Intake & Output: Intake and Output for Last 24 Hours 04/05/21 04/06/21 04/07/21 23:59 23:59 23:59 Intake Total 370 / 370 930 / 930 200 / 200 Output Total 850 / 850 2225 / 2225 500 / 500 Balance -480 / -480 -1295 / -1295 -300 / -300 Medical Nutrition Assessment Dietitian: Malnutrition Criteria Met Start: 04/04/21 11:34 Freq: Status: Active Protocol: Document 04/06/21 10:38 AG (Rec: 04/06/21 10:38 [id number]) Nutrition Malnutrition Evidence of Malnutrition Exists Yes Malnutrition (severe): Acute Illness/Injury Evidenced By Suboptimal Energy Intake ( Severe),Weight Loss (Severe) Clinical Problem Acute Disease or Injury Related Malnutrition Etiology severe acute malnutrition r/t inadequate energy intake d/t decreased appetite w/ acute illness Signs/Symptoms as evidenced by estimated PO intake meeting <50% of estimated nutritional needs x 12 days; unintentional wt loss of 11#/5.5% <2 weeks. Status Active Problem Recommendation Dietitian Recommendations/Changes NPO per Dr. Rizo; recommend regular diet d/t acute malnutrition and 4oz ensure compact w/ meals for additional calories/protein if consumed. Lab / Micro Data Result Diagrams: 04/07/21 04:20 04/07/21 04:20 Labs: Laboratory Results - last 24 hr 04/07/21 04:20: WBC 9.2, RBC 5.55, Hgb 17.4 H, Hct 49.6, MCV 89.4, MCH 31.4, MCH C 35.1, RDW Std Deviation 43.2, RDW Coeff of Raven 13.1, Plt Count 301, MPV 9.8 04/07/21 04:20: Sodium 137, Potassium 3.7, Chloride 100, Carbon Dioxide 28.0, Anion Gap 9, BUN 36 H, Creatinine 1.00, Estim Creat Clear Calc 76.52, Est GFR (MDRD) Af Amer 95, Est GFR (MDRD) Non-Af 79, BUN/Creatinine Ratio 36.0 H, Glucose 116 H, Calcium 8.1 L, Total Bilirubin 1.60 H, AST 86 H, ALT 60, Alkaline Phosphatase 103, Total Protein 7.1, Albumin 2.5 L, Globulin 4.6 H, Albumin/Globulin Ratio 0.5 L Micro: Microbiology 04/04/21 04:15 Urine, Clean Catch Legionella Antigen - Final 04/04/21 04:15 Urine, Clean Catch Streptococcus pneumoniae Antigen (M - Final 04/03/21 21:25 Mucosa - Nasopharyngeal Respiratory Panel (PCR) - Final Physical Exam Narrative GENERAL: Appears ill looking and dyspneic at rest HEENT: Atraumatic; EYES; Anicteric, Normal Conjunctiva NECK; supple, normal thyroid, RESPIRATORY: Diminished to auscultation CARDIOVASCULAR: Regular S1 S2, GI: soft, normoactive bowel sounds, : No Renal angle tenderness; EXTREMITIES: No edema, no clubbing, MUSCULOSKELETAL: no muscle waisting NEURO: Awake; no lateralizing signs. SKIN: No Rash PSYCH; Flat affect Assessment & Plan Assessment/Plan (1) Pneumonia due to 2019 novel coronavirus: (2) Acute respiratory failure with hypoxia: PLAN: Patient is a 70-year-old M unvaccinated against COVID-19 who presented with progressive shortness of breath. Patient tested positive for Covid on 03/29/2021 his symptoms had started on 03/27/2021. He did receive monoclonal antibody infusion as outpatient however presented with worsening symptoms 1. Acute hypoxic respiratory failure secondary to SARS-CoV-2 pneumonia ?. Patient was transferred to the intensive care unit due to rapidly deteriorating oxygen levels. Was placed on noninvasive ventilation Airvo 40 L/min with FiO2 of 80%. Patient was started on remdesivir on admission did continue also on Decadron consulted ID for initiation of baricitinib -04/05/2021; Patient respiratory status deteriorated resulting in patient being placed on noninvasive ventilation BiPAP with FiO2 of 65% -04/06/2021;Patient remains in ICU apparently desaturated when placed on Airvo currently back on AVAPS with FiO2 of 75% ?04/07/2021; Patient seen no change in condition with still requiring high flow oxygen via AVAPS with FiO2 of 80% 2. Hypertension - Blood pressure controlled, home medications continued with dose adjustment as needed 3. Dyslipidemia -Patient is on statin therapy, continued at home dose 4. Depression with anxiety ?Patient is on sertraline did continue 5. DVT prophylaxis ?Girish Charges/Coding Visit Charges Inpatient E&M: 90921 Subs Hosp L3
--- NOTE | 2021-04-07 08:55 | CPS ---
Trialed Airvo at 60lpm and 93%, pt desatted into the 70's and deep breathing did not increase his SpO2.
--- NOTE | 2021-04-07 10:30 | NURSING ---
1030 Dr. Rizo in pt room w/[employer] and RT prep for intubation 1035 4mg versed IV push 1036 20mg etomidate IV push 1038 100mg succs IV push 1039 7.5 OET 24cm at lip w/good color change, bilat breath sds. 1045 prop/fent started 1100 CXR, crepitus noted bilat neck Rt clavicle, viewed by Dr. Rizo, all tubes in correct position per his report
[2021-04-07] MEDS: Midazolam 2 MG/2 ML Syringe 4 MG IV (10:35)
[2021-04-07] MEDS: Etomidate 20 MG/10 ML Vial IV (10:36)
--- NOTE | 2021-04-07 10:41 | RAD_ITS ---
STUDY: X-RAY CHEST REASON FOR EXAM: Male, 70 years old. oet placement TECHNIQUE: Single AP portable view of the chest. COMPARISON: None. FINDINGS: Endotracheal tube with the tip approximately 5 cm above the nay. Nasogastric tube coiled in left upper quadrant likely in the stomach. Patchy alveolar opacities in both lungs consistent with bilateral pneumonia. Tiny bilateral pleural effusions. Subcutaneous emphysema throughout the upper chest and neck. Normal size heart. Normal mediastinum and matteo. Normal visualized pulmonary arteries. Normal visualized aortic arch and descending thoracic aorta. Normal visualized thoracic spine. Normal visualized ribs, clavicles, and shoulders. There is no demonstrated abnormality of the visualized soft tissue structures of the upper abdomen. RAD/Chest 1 View (Portable) IMPRESSION: 1. Endotracheal tube with the tip above the nay. 2. Nasogastric tube with the tip in the stomach. 3. Patchy bilateral pneumonia. 4. Tiny bilateral pneumothoraces with subcutaneous emphysema. Electronically Signed: Ronald Hopson MD at 11:44 EDT Tel , Service support ,
[2021-04-07] MEDS: Propofol 10MG/Ml 1,000 MG/100 ML Bottle 10.5 MG CONT INF ×2 (10:45→13:01)
[2021-04-07 11:21] LABS: CPK Total, Creatine Kinase 142 U/L (39-308); Triglycerides 81 mg/dL
[2021-04-07] MEDS: TITRATION PARAMETER CHANGE 1 EACH IV (11:26)
[2021-04-07] MEDS: 0.9% Saline Lock 10 ML Syringe IV ×3 (11:40→15:20)
[2021-04-07 12:06] LABS: Allen Test Positive; Base Excess 0 mmol/L (-2 to +2); Bicarbonate 25.5 mmol/L (22-26); Blood Gas Specimen Type ART; FI02 100; Mode AC; O2 Delivery Device Adult Vent; PEEP 12; PO2 56 mmHG (75-100); RR 16; SITE R Brach; SO2 88 % (95-99); Total Carbon Dioxide 27 mmol/L; Vt 450; pCO2 44.4 mmHg (35-45); pH 7.37 (7.35-7.45)
[2021-04-07] MEDS: Enoxaparin 30 MG/0.3 ML Syringe SC ×2 (14:54→20:06)
[2021-04-07] MEDS: Cyanocobalamin 500 MCG Tablet 1000 MCG PO (14:56)
[2021-04-07] MEDS: Famotidine 20 MG Tablet PO (15:03)
[2021-04-07] MEDS: Aspirin 81 MG TAB.CHEW PO (15:04)
[2021-04-07] MEDS: Sertraline 100 MG Tablet PO (15:04)
[2021-04-07] MEDS: dexAMETHasone 4 MG/ML Vial 6 MG IV (15:05)
[2021-04-07] MEDS: Chlorhexidine 15 ML PO ×2 (15:20→22:22)
--- NOTE | 2021-04-07 19:30 | NURSING ---
crepitis noted to neck and upper chest.
[2021-04-07] MEDS: Atorvastatin Calcium 40 MG Tablet GT (20:06)
[2021-04-07] MEDS: Famotidine 20 MG Tablet GT (20:06)
--- NOTE | 2021-04-07 20:18 | NURSING ---
left upper arm PICC line: Steele port: fetanyl and propofol White port: locked Red port: locked
[2021-04-07] MEDS: Propofol 10MG/Ml 1,000 MG/100 ML Bottle 15.7 MG CONT INF (20:40)
[2021-04-08] VITALS (50 sets, daily range): BP systolic 71–115; BP diastolic 52–89; PULSE 68–111; RESP 14–48; TEMP 35.9–37.5; O2SAT 75–92
[2021-04-08] MEDS: Propofol 10MG/Ml 1,000 MG/100 ML Bottle 15.7 MG CONT INF ×3 (00:41→10:55)
[2021-04-08] MEDS: CHLORHEXIDINE GLUC 2% CLOTH 1 EACH TOWELETTE TOPICAL (04:42)
[2021-04-08] MEDS: 0.9% Saline Lock 10 ML Syringe IV ×3 (06:02→17:00)
[2021-04-08 06:17] LABS: Hematocrit 44.5 % (40-54); Hemoglobin 15.3 g/dL (13.0-16.5); Mean Corp Hgb Conc 34.4 g/dL (32-36); Mean Corpuscular Hgb 30.8 pg (27.0-32.0); Mean Corpuscular Volume 89.7 fL (80-94); Mean Platelet Vol. 9.9 fl (6.2-12.0); Platelet Count 311 K/mm3 (150-450); RBC Distribution Width CV 13.2 % (11.6-14.6); RBC Distribution Width SD 43.6 fl (35.1-43.9); Red Blood Count 4.96 M/mm3 (4.6-6.2); White Blood Count 6.7 K/mm3 (4.4-11.0)
[2021-04-08 06:44] LABS: ALB/GLOB Ratio 0.5 RATIO (0.9-2.4); AST(SGOT) 42 U/L (15-37); Alanine Aminotransfer ALT/SGPT 45 U/L (16-61); Albumin, Serum 2.1 g/dL (3.2-5.0); Alkaline Phosphatase 88 U/L (45-117); Anion Gap 10 (5-15); BUN 60 mg/dL (7-18); BUN/Creat Ratio 33.9 RATIO (10-20); Calcium,Total 7.7 mg/dL (8.5-10.1); Chloride 101 mmol/L (98-107); Creatinine, Serum 1.77 mg/dL (0.70-1.30); EST Glomerular Filtration Rate 41 mL/min (>60); Est Glom Filt Rate - Afr Amer 49 mL/min (>60); Estimated Creatinine Clearance 43.23 ml/min; Globulin 4.5 g/dL (2.2-4.2); Glucose 194 mg/dL (74-106); Protein, Total 6.6 g/dL (6.4-8.2); Sodium Level 138 mmol/L (136-145)
[2021-04-08] MEDS: Chlorhexidine 15 ML PO ×2 (07:30→21:43)
--- NOTE | 2021-04-08 08:45 | PN.CC_ITS ---
Assessment & Plan Assessment/Plan (1) Acute respiratory failure with hypoxia: (2) Pneumonia due to 2019 novel coronavirus: PLAN: RECOMMENDATIONS: 1. Continue assist-control and wean FiO2 to maintain oxygen saturations at or above 90%. 2. Okay to use higher FiO2 to limit pressure given pneumomediastinum 3. Continue Decadron to complete 10-day treatment course. 4. Continue remdesivir. Continue to monitor liver and renal function. 5. Continue prophylactic Lovenox. 6. Continue baricitinib to complete treatment course. 7. Hold on Lasix today given increase in creatinine IMPRESSIONS: 1. Acute hypoxemic respiratory failure secondary to COVID-19 pneumonia Although the patient was initially referred to receive the monoclonal therapy on an outpatient basis, he became hypoxemic and required inpatient hospitalization. Patient ultimately required intubation on 04/07/2021 with findings of pneumomediastinum shortly after intubation. FiO2 will be weaned to maintain oxygen saturations at or above 90%. The patient will be continued on remdesivir, baricitinib, Decadron and prophylactic Lovenox. IV Lasix can be uti lized as needed to maintain euvolemic state barring renal function. 2. Hypertension/hyperlipidemia/depression/anxiety Complicates care, management, recovery and prognosis. Continue home medications as indicated. TIME: 34 minutes of critical care time, independent of procedures, was spent addressing the patient's acute hypoxemic respiratory failure secondary to COVID- 19 pneumonia, review of all data and collaboration with the care team. (6 AM to 7 AM) Subjective Subjective Patient did okay overnight. No acute issues were reported, but patient does continue to have marginal saturations on 100% FiO2. Patient opens his eyes to voice, but not following commands. Objective Data Objective Data Vital Signs: Vital Signs Temp Pulse Resp BP Pulse Ox 36.4 C L 70 22 H 109/67 90 04/08/21 04:00 04/08/21 07:20 04/08/21 07:20 04/08/21 07:00 04/08/21 07:20 Oxygen Flow Rate (L/min) 60 Oxygen Delivery Method Mechanical Ventilator Weight: 83.3 kg Body Mass Index (BMI) 25.7 Intake & Output: Intake and Output for Last 24 Hours 04/06/21 04/07/21 04/08/21 23:59 23:59 23:59 Intake Total 930 / 930 1286.18 / 1350.68 614.13 / 614.13 Output Total 2225 / 2225 1000 / 1000 325 / 325 Balance -1295 / -1295 286.18 / 350.68 289.13 / 289.13 Medical Nutrition Assessment Dietitian: Malnutrition Criteria Met Start: 04/04/21 11:34 Freq: Status: Active Protocol: Document 04/07/21 09:21 BP (Rec: 04/07/21 09:21 BP [id number]) Nutrition Malnutrition Evidence of Malnutrition Exists Yes Malnutrition (severe): Acute Illness/Injury Evidenced By Suboptimal Energy Intake ( Severe),Weight Loss (Severe) Clinical Problem Acute Disease or Injury Related Malnutrition Etiology severe acute malnutrition r/t inadequate energy intake d/t decreased appetite w/ acute illness Signs/Symptoms as evidenced by estimated PO intake meeting <50% of estimated nutritional needs x 12 days; unintentional wt loss of 11#/5.5% <2 weeks. Status Active Problem Recommendation Dietitian Recommendations/Changes Pt to remain NPO; recommend regular diet d/t acute malnutrition and 4oz ensure compact w/ meals for additional calories/protein if consumed. Will monitor for need of TF recs if requires intubation. Lab / Micro Data Result Diagrams: 04/08/21 05:50 04/08/21 05:50 Labs: Laboratory Results - last 24 hr 04/07/21 04:20: Total Creatine Kinase 142, Triglycerides 81 04/08/21 05:50: WBC 6.7, RBC 4.96, Hgb 15.3, Hct 44.5, MCV 89.7, MCH 30.8, MCHC 34.4, RDW Std Deviation 43.6, RDW Coeff of Raven 13.2, Plt Count 311, MPV 9.9 04/08/21 05:50: Sodium 138, Potassium 3.0 L, Chloride 101, Carbon Dioxide 27.0, Anion Gap 10, BUN 60 H, Creatinine 1.77 H, Estim Creat Clear Calc 43.23, Est GFR (MDRD) Af Amer 49 L, Est GFR (MDRD) Non-Af 41 L, BUN/Creatinine Ratio 33.9 H, Glucose 194 H, Calcium 7.7 L, Total Bilirubin 1.10 H, AST 42 H, ALT 45, Alkaline Phosphatase 88, Total Protein 6.6, Albumin 2.1 L, Globulin 4.5 H, Albumin/G lobulin Ratio 0.5 L Micro: Microbiology 04/07/21 10:53 Sputum, Expectorated/Coughed Gram Stain - Final 04/04/21 04:15 Urine, Clean Catch Legionella Antigen - Final 04/04/21 04:15 Urine, Clean Catch Streptococcus pneumoniae Antigen (M - Final 04/03/21 21:25 Mucosa - Nasopharyngeal Respiratory Panel (PCR) - Final ABG Data ABG results: ABG 04/07/21 12:02 Specimen Type ART Sample Site R Brach pH 7.37 Bicarbonate Actual 25.5 Total CO2 27 Base Excess 0 O2 Saturation 88 L O2 % 100 ABG pCO2 44.4 ABG pO2 56 L Adrián Test Positive Respiration Rate 16 O2 Delivery Device Adult Vent Vent Mode AC Tidal Volume 450 POC PEEP 12 Radiography Diagnostic Testing: Radiology Impression Chest X-Ray 04/07/21 10:41 IMPRESSION: 1. Endotracheal tube with the tip above the nay. 2. Nasogastric tube with the tip in the stomach. 3. Patchy bilateral pneumonia. 4. Tiny bilateral pneumothoraces with subcutaneous emphysema. Electronically Signed: Ronald Hopson MD at 11:44 EDT Tel , Service support , Physical Exam Const alert General Appearance: cooperative and on BiPAP HEENT normocephalic and head/scalp atraumatic Eyes PERRL, EOMs intact bilaterally and conjunctivae normal Neck supple General: trachea midline Chest inspection of chest normal Chest: symmetrical chest wall rise and crepitus clavicle bilateral Resp Auscultation: diminished lung sounds; Negative for rales, rhonchi or wheezes Cardio S1 normal heart sound and S2 normal heart sound Rate: tachycardic GI normal to inspection, nondistended, normoactive bowel sounds Extremity no clubbing, cyanosis or edema Skin no rashes or lesions noted Neuro CN's II-XII intact bilaterally, moves all extremities and no focal motor deficits Psych cooperative and affect normal Charges/Coding Procedures Hospitalists Procedures: 99697 Critial Care 1st Hr
--- NOTE | 2021-04-08 08:57 | PN.HOSP_ITS ---
Subjective Subjective Follow-up on acute respiratory failure/acute COVID-19 pneumonia: Patient was seen and examined. He is not sedated, and intubated. No other acute events overnight. Sputum cultures growing staph organism alpha-hemolytic strep Objective Data Objective Data Vital Signs: Vital Signs Temp Pulse Resp BP Pulse Ox 97.6 F L 70 22 H 109/67 90 04/08/21 04:00 04/08/21 07:20 04/08/21 07:20 04/08/21 07:00 04/08/21 07:20 Oxygen Flow Rate (L/min) 60 Oxygen Delivery Method Mechanical Ventilator Weight: 83.3 kg Body Mass Index (BMI) 25.7 Intake & Output: Intake and Output for Last 24 Hours 04/06/21 04/07/21 04/08/21 23:59 23:59 23:59 Intake Total 930 / 930 1286.18 / 1350.68 614.13 / 614.13 Output Total 2225 / 2225 1000 / 1000 325 / 325 Balance -1295 / -1295 286.18 / 350.68 289.13 / 289.13 Medical Nutrition Assessment Dietitian: Malnutrition Criteria Met Start: 04/04/21 11:34 Freq: Status: Active Protocol: Document 04/07/21 09:21 BP (Rec: 04/07/21 09: BP [id number]) Nutrition Malnutrition Evidence of Malnutrition Exists Yes Malnutrition (severe): Acute Illness/Injury Evidenced By Suboptimal Energy Intake ( Severe),Weight Loss (Severe) Clinical Problem Acute Disease or Injury Related Malnutrition Etiology severe acute malnutrition r/t inadequate energy intake d/t decreased appetite w/ acute illness Signs/Symptoms as evidenced by estimated PO intake meeting <50% of estimated nutritional needs x 12 days; unintentional wt loss of 11#/5.5% <2 weeks. Status Active Problem Recommendation Dietitian Recommendations/Changes Pt to remain NPO; recommend regular diet d/t acute malnutrition and 4oz ensure compact w/ meals for additional calories/protein if consumed. Will monitor for need of TF recs if requires intubation. Lab / Micro Data Result Diagrams: 04/08/21 05:50 04/08/21 05:50 Labs: Laboratory Results - last 24 hr 04/07/21 04:20: Total Creatine Kinase 142, Triglycerides 81 04/08/21 05:50: WBC 6.7, RBC 4.96, Hgb 15.3, Hct 44.5, MCV 89.7, MCH 30.8, MCHC 34.4, RDW Std Deviation 43.6, RDW Coeff of Raven 13.2, Plt Count 311, MPV 9.9 04/08/21 05:50: Sodium 138, Potassium 3.0 L, Chloride 101, Carbon Dioxide 27.0, Anion Gap 10, BUN 60 H, Creatinine 1.77 H, Estim Creat Clear Calc 43.23, Est GFR (MDRD) Af Amer 49 L, Est GFR (MDRD) Non-Af 41 L, BUN/Creatinine Ratio 33.9 H, Gl ucose 194 H, Calcium 7.7 L, Total Bilirubin 1.10 H, AST 42 H, ALT 45, Alkaline Phosphatase 88, Total Protein 6.6, Albumin 2.1 L, Globulin 4.5 H, Albumin/Globulin Ratio 0.5 L Micro: Microbiology 04/07/21 10:53 Sputum, Expectorated/Coughed Gram Stain - Final 04/04/21 04:15 Urine, Clean Catch Legionella Antigen - Final 04/04/21 04:15 Urine, Clean Catch Streptococcus pneumoniae Antigen (M - Final 04/03/21 21:25 Mucosa - Nasopharyngeal Respiratory Panel (PCR) - Final ABG Data ABG results: ABG 04/07/21 12:02 Specimen Type ART Sample Site R Brach pH 7.37 Bicarbonate Actual 25.5 Total CO2 27 Base Excess 0 O2 Saturation 88 L O2 % 100 ABG pCO2 44.4 ABG pO2 56 L Adrián Test Positive Respiration Rate 16 O2 Delivery Device Adult Vent Vent Mode AC Tidal Volume 450 POC PEEP 12 Radiography Diagnostic Testing: Radiology Impression Chest X-Ray 04/07/21 10:41 IMPRESSION: 1. Endotracheal tube with the tip above the nay. 2. Nasogastric tube with the tip in the stomach. 3. Patchy bilateral pneumonia. 4. Tiny bilateral pneumothoraces with subcutaneous emphysema. Electronically Signed: Ronald Hopson MD at 11:44 EDT Tel , Service support , Physical Exam Narrative Physical exam: General: Alert, Oriented x3, Cooperative, intubated, not sedated HEENT: Atraumatic Oral: Moist Mucosa Neck: Supple Lungs: Diminished to auscultation Cardiovascular: HS I+II, regular, no murmurs Abdomen: Bowel Sounds Present, Soft, Non Tender Extremities: No edema Assessment & Plan Assessment/Plan (1) Acute respiratory failure with hypoxia: (2) Pneumonia due to 2019 novel coronavirus: (3) TIFFANIE (acute kidney injury): (4) Hypokalemia: PLAN: 1. Acute hypoxic respiratory failure secondary to acute COVID-19 pneumonia, intubated, mechanical ventilator Customer Complaint Clerk and ID following Completed remdesivir. Continue on Decadron 2. Hypokalemia, replaced, recheck in a.m. 3. Acute kidney injury, likely secondary to dehydration We will hold lisinopril and hydrochlorothiazide Baricitinib dose adjusted by ID Repeat blood work in a.m. 4. Rest of his chronic medical conditions including hypertension/dyslipidemia/anxiety/depression -all remained stable Lisinopril and hydrochlorothiazide on hold on account of #3 We will continue statin, Zoloft Charges/Coding Visit Charges Inpatient E&M: 30612 Subs Hosp L3
[2021-04-08] MEDS: Cyanocobalamin 500 MCG Tablet 1000 MCG GT (12:33)
[2021-04-08] MEDS: Ascorbic Acid 500 MG Tablet 1000 MG PO ×2 (12:34→21:04)
[2021-04-08] MEDS: Sertraline 100 MG Tablet GT (12:35)
[2021-04-08] MEDS: Aspirin 81 MG TAB.CHEW GT (12:35)
[2021-04-08] MEDS: Famotidine 20 MG Tablet GT ×2 (12:35→21:05)
[2021-04-08] MEDS: Potassium Chloride Oral Soln 20 MEQ/15 ML UDC 40 MEQ PO ×2 (12:36→21:04)
[2021-04-08] MEDS: dexAMETHasone 4 MG/ML Vial 6 MG IV (12:37)
[2021-04-08] MEDS: Enoxaparin 30 MG/0.3 ML Syringe SC ×2 (12:38→21:05)
--- NOTE | 2021-04-08 13:35 | PCM.PN.ID ---
Physical Exam Narrative On vent, pressors Const Constitutional Narrative: ill appearing Resp Auscultation: rhonchi and diminished lung sounds Cardio Rate: tachycardic GI normal to inspection, nondistended, normoactive bowel sounds Skin no rashes or lesions noted ID ID: Route of nutrition/ use of supplements: [] Nutritional Intake: [] IV Site: [] Ariza Catheter: [] Assessment & Plan Assessment/Plan (1) Pneumonia due to 2019 novel coronavirus: PLAN: Sx started 03/27/21, unvaccinated. also sick, did receive monoclonal Ab. On dex, completed remdesivir. Isolate for 20 days from start of symptoms. On baricitinib. Recommend vaccine once out of iso. CT neg for PE. On lovenox 30mg bid. New TIFFANIE, will decrease baricitinib dose. Sputum with staph aureus and strep, will start vanc/ceftriaxone. Now on vent, pressors. Will follow (2) Acute respiratory failure with hypoxia:
--- NOTE | 2021-04-08 13:43 | CASEMGMT ---
SOCIAL WORK Attempted to contact listed, Denise Ba to provide support. No answer, unable to leave message. Shani Xavier, [employer]IST, [employer] AUTHOR
--- NOTE | 2021-04-08 15:13 | PCM.RX.CS ---
Consult Pharmacy has been consulted to manage selected antiobiotic: Vancomycin Type of Consult: New start Prior Doses of Antibiotics Received/Current Regimen: Medications Discontinued Medications Vancomycin HCl 2,000 mg/ (Sodium Chloride) 540 mls @ 250 mls/hr IV X1 ONE Stop: 04/08/21 14:39 Last Admin: 04/08/21 14:00 Dose: 250 mls/hr Documented by: Labs: Sodium 138 mmol/L (136-145) 04/08/21 05:50 Potassium 3.0 mmol/L (3.5-5.1) L 04/08/21 05:50 Chloride 101 mmol/L (98-107) 04/08/21 05:50 Carbon Dioxide 27.0 mmol/L (21.0-32.0) 04/08/21 05:50 Anion Gap 10 (5-15) 04/08/21 05:50 BUN 60 mg/dL (7-18) H 04/08/21 05:50 Creatinine 1.77 mg/dL (0.70-1.30) H 04/08/21 05:50 Est GFR (MDRD) Af Amer 49 mL/min (>60) L 04/08/21 05:50 Est GFR (MDRD) Non-Af 41 mL/min (>60) L 04/08/21 05:50 BUN/Creatinine Ratio 33.9 RATIO (10-20) H 04/08/21 05:50 Glucose 194 mg/dL (74-106) H 04/08/21 05:50 Microbiology: Microbiology 04/07/21 10:53 Sputum, Expectorated/Coughed Gram Stain - Final 04/07/21 10:53 Sputum, Expectorated/Coughed Respiratory Culture - Preliminary Staphylococcus aureus Alpha Hemolytic Streptococcus 04/04/21 04:15 Urine, Clean Catch Legionella Antigen - Final 04/04/21 04:15 Urine, Clean Catch Streptococcus pneumoniae Antigen (M - Final 04/03/21 21:25 Mucosa - Nasopharyngeal Respiratory Panel (PCR) - Final Weight used for dosin kg Estimated Creatinine Clearance: 43 mL/min Goal Trough: 15-20 mcg/mL Pharmacy Plan for Drug Dosing: Vancomycin 2000mg given x1 followed by 500mg IV q12h and trough prior to 4th dose per policy. SCr significantly higher today than yesterday, trough may need checked earlier. Pharmacy Service will continue to monitor and adjust dosing as required. Follow-Up Labs: Trough Vancomycin - 04/09 @ 5048
--- NOTE | 2021-04-08 15:34 | PCM.PN.HOSP ---
Subjective Subjective Follow-up on acute respiratory failure/acute COVID-19 pneumonia: Patient was seen and examined. Remains intubated, on mechanical ventilator. Objective Data Objective Data Vital Signs: Vital Signs Temp Pulse Resp BP Pulse Ox 97.8 F 80 26 H 92/62 89 04/08/21 12:00 04/08/21 14:00 04/08/21 14:00 04/08/21 14:00 04/08/21 14:00 Oxygen Flow Rate (L/min) 60 Oxygen Delivery Method Mechanical Ventilator Weight: 83.3 kg Body Mass Index (BMI) 25.7 Intake & Output: Intake and Output for Last 24 Hours 04/06/21 04/07/21 04/08/21 23:59 23:59 23:59 Intake Total 930 / 930 1286.18 / 1350.68 1622.98 / 1622.98 Output Total 2225 / 2225 1000 / 1000 475 / 475 Balance -1295 / -1295 286.18 / 350.68 1147.98 / 1147.98 Medical Nutrition Assessment Dietitian: Malnutrition Criteria Met Start: 04/04/21 11:34 Freq: Status: Active Protocol: Document 04/08/21 10:28 GINI (Rec: 04/08/21 10:28 [facility] [id number]) Nutrition Malnutrition Evidence of Malnutrition Exists Yes Malnutrition (severe): Acute Illness/Injury Evidenced By Suboptimal Energy Intake ( Severe),Weight Loss (Severe) Clinical Problem Acute Disease or Injury Related Malnutrition Etiology severe acute malnutrition r/t inadequate energy intake d/t decreased appetite w/ acute illness Signs/Symptoms as evidenced by estimated PO intake meeting <50% of estimated nutritional needs x 13 days; unintentional wt loss of >5% in less than 2 weeks. Status Active Problem Recommendation Dietitian Recommendations/Changes Will order Vital AF 1.2 at 70 ml/hr with 110 ml water flush every 4 hours to provide ~ 2016 maria dolores/ 126 gm pro/ 2021 ml free water. Would start tf at 20 ml/hr and increase by 20 ml ever 8-10 hrs as pt tolerates until goal rate of 70 ml/hr achieved. When able to resume po diet, recommend regular diet d/t acute malnutrition and 4oz ensure compact w/ meals for additional calories/protein if consumed. Lab / Micro Data Result Diagrams: 04/08/21 05:50 04/08/21 05:50 Labs: Laboratory Results - last 24 hr 04/08/21 05:50: WBC 6.7, RBC 4.96, Hgb 15.3, Hct 44.5, MCV 89.7, MCH 30.8, MCHC 34.4, RDW Std Deviation 43.6, RDW Coeff of Raven 13.2, Plt Count 311, MPV 9.9 04/08/21 05:50: Sodium 138, Potassium 3.0 L, Chloride 101, Carbon Dioxide 27.0, Anion Gap 10, BUN 60 H, Creatinine 1.77 H, Estim Creat Clear Calc 43.23, Est GFR (MDRD) Af Amer 49 L, Est GFR (MDRD) Non-Af 41 L, BUN/Creatinine Ratio 33.9 H, Glucose 194 H, Calcium 7.7 L, Total Bilirubin 1.10 H, AST 42 H, ALT 45, Alkaline Phosphatase 88, Total Protein 6.6, Albumin 2.1 L, Globulin 4.5 H, Albumin/Globulin Ratio 0.5 L Micro: Microbiology 04/07/21 10:53 Sputum, Expectorated/Coughed Gram Stain - Final 04/07/21 10:53 Sputum, Expectorated/Coughed Respiratory Culture - Preliminary Staphylococcus aureus Alpha Hemolytic Streptococcus 04/04/21 04:15 Urine, Clean Catch Legionella Antigen - Final 04/04/21 04:15 Urine, Clean Catch Streptococcus pneumoniae Antigen (M - Final 04/03/21 21:25 Mucosa - Nasopharyngeal Respiratory Panel (PCR) - Final Physical Exam Narrative Physical exam: General: Alert, Oriented x3, Cooperative, intubated, sedated HEENT: Atraumatic Oral: Moist Mucosa Neck: Supple Lungs: Diminished to auscultation Cardiovascular: HS I+II, regular, no murmurs Abdomen: Bowel Sounds Present, Soft, Non Tender Extremities: No edema Assessment & Plan Assessment/Plan (1) Acute respiratory failure with hypoxia: (2) Pneumonia due to 2019 novel coronavirus: (3) TIFFANIE (acute kidney injury): (4) Hypokalemia: PLAN: 1. Acute hypoxic respiratory failure secondary to acute COVID-19 pneumonia, worsening Patient is intubated and mechanical ventilator Associate Professor Of Engineering and ID following Completed Remdesivir. Continue on Decadron 2. Hypokalemia, replaced, recheck in a.m. 3. Acute kidney injury, likely secondary to dehydration We will hold lisinopril and hydrochlorothiazide Baricitinib dose adjusted by ID Repeat blood work in a.m. 4. Rest of his chronic medical conditions including hypertension/dyslipidemia/anxiety/depression -all remained stable Lisinopril and hydrochlorothiazide on hold on account of #3 Will continue statin, Zoloft Charges/Coding Visit Charges Inpatient E&M: 06169 Subs Hosp L3
[2021-04-08] MEDS: Propofol 10MG/Ml 1,000 MG/100 ML Bottle 20.9 MG CONT INF (15:55)
--- NOTE | 2021-04-08 16:24 | RAD_ITS ---
STUDY: X-RAY CHEST REASON FOR EXAM: Male, 70 years old. sudden changes TECHNIQUE: Frontal portable view of the chest COMPARISON: 07 April 2021 FINDINGS: Appearance is stable and similar to prior. There is severe chest wall emphysema. There is probably stable small left apical pneumothorax, difficult to visualize. Right apical pneumothorax is not seen. There is probably pneumomediastinum. There is severe multifocal pneumonia. Cardiac size is normal. Endotracheal tube terminates with its tip 3.5 cm from the nay. Gastric tube courses into the fundus of the stomach. Left PICC line terminates with its tip in the upper right atrium. RAD/Chest 1 View (Portable) IMPRESSION: 1. Stable since prior. 2. Small left possibly small right apical pneumothoraces. 3. Pneumomediastinum, severe subcutaneous emphysema. 4. Severe bilateral pneumonia. 5. Expected appearance of support lines. Electronically Signed: Aidan Mcallister MD at 17:11 EDT Tel , Service support ,
[2021-04-08] MEDS: Vital AF 1.2 Cal Liquid 1,000 ML 70 ML GT (17:00)
--- NOTE | 2021-04-08 19:50 | NURSING ---
Assessment completed, crepitis noted to upper chest and b/l neck.
[2021-04-08 20:01] LABS: Allen Test Positive; Base Excess -1 mmol/L (-2 to +2); Bicarbonate 25.8 mmol/L (22-26); Blood Gas Specimen Type ART; FI02 100; Mode BiLevel; O2 Delivery Device ET Tube; PO2 41 mmHG (75-100); RR 12; SITE L Radial; SO2 69 % (95-99); Total Carbon Dioxide 27 mmol/L; pH 7.29 (7.35-7.45)
--- NOTE | 2021-04-08 20:27 | NURSING ---
daughter Brii Holbrook updated on ABG results. Family called, coming in.
[2021-04-08] MEDS: Propofol 10MG/Ml 1,000 MG/100 ML Bottle 18.3 MG CONT INF (20:30)
--- NOTE | 2021-04-08 20:50 | CPS ---
Critical ABG values, Dr. Ryan meza.
[2021-04-08] MEDS: Amiodarone 200 MG Tablet GT (21:04)
[2021-04-08] MEDS: Atorvastatin Calcium 40 MG Tablet GT (21:04)
--- NOTE | 2021-04-08 21:22 | NURSING ---
Pt with wide complex rhythm on monitor, [place] ARTERIAL EMBALMER on unit, in room, lifepak brought into pt room, SHIPPING LEAD called for MD. 12 lead ekg completed, showing junctional rhythm. defib pads placed on pt if needed. Dr Mon to bedside,review of events, no new orders.
--- NOTE | 2021-04-08 21:26 | EKG12_ITS ---
Test Reason : Blood Pressure : / mmHG Vent. Rate : 102 BPM Atrial Rate : 102 BPM P-R Int : 000 ms QRS Dur : 088 ms QT Int : 526 ms P-R-T Axes : 000 073 047 degrees QTc Int : 685 ms Normal sinus rhythm Abnormal ECG No previous ECGs available Confirmed by DANA SWANSON, MCKAYLA ([id number]), nurseryperson MARIANA LEONARD ([id number]) on 04/10/2021 9:30:24 AM Referred By: MIKAEL Confirmed By:MCKAYLA CORTEZ MD
--- NOTE | 2021-04-08 21:37 | NURSING ---
Spoke with and multiple other family members about Pt's decline in status. Discussed code status, and family, they would like pt to remain a full code at this time.
--- NOTE | 2021-04-08 21:51 | PCM.HOSP.N ---
Hospitalist Note Called to room by Heike TRENT for arrhythmia on youth nutritional monitor. Monitor reading V. tach, heart rate 101 ~116. Femoral and carotid pulses palpable throughout. AUTOMATED MANUFACTURING INSTRUCTOR called due to patient's continued arrhythmia, EKG obtained which demonstrated accelerated junctional rhythm. Dr. Mon at bedside, no changes to care plan made at this time. Patient's family escorted to bedside due to patient's declining condition. Patient on maximum ventilator settings, continues to have oxygen saturations in the 70s to 80s.
--- NOTE | 2021-04-08 21:59 | CM.ED ---
SW Note SW went to ICU and responded to Rapid Response. SW provided emotional support to patient's , patient's son and patient's granddaughter. [employer]AL [employer] TRUCK DRIVER Keisha updated family about patient's progress. SW remains available if needs arise. Plan: Emotional Support provided Swati Locke
--- NOTE | 2021-04-08 22:00 | NURSING ---
Pt family at bedside, swelling continues to chest and c/l neck area, face.
--- NOTE | 2021-04-08 23:15 | NURSING ---
Pts family requesting to speak with nurse. Pt family requesting pt to not suffer any more and that pt would not want to live with like this. This RN discussed wtih family the types of Code Status options. Pt , daughter and son wish pt to be a DNR-CCA at this time. Discussed possibility of extubating patient if they choose and let pt go. Shani Montelongo DNP called for paparwork.
--- NOTE | 2021-04-08 23:42 | PCM.HOSP.N ---
Hospitalist Note Patients family at bedside requesting to change patients code status. After explanation to family and discussion with , son and daughter patient changed to a DNRCC-A with intubation.
[2021-04-09] VITALS (24 sets, daily range): BP systolic 77–96; BP diastolic 51–68; PULSE 71–101; RESP 12–31; TEMP 36.1–37.2; O2SAT 79–89
[2021-04-09] MEDS: Propofol 10MG/Ml 1,000 MG/100 ML Bottle 18.3 MG CONT INF
--- NOTE | 2021-04-09 01:00 | NURSING ---
Pt with large amount of swelling to right eye, swelling continues to get worse on chest and neck.
--- NOTE | 2021-04-09 02:17 | NURSING ---
swelling continues to move up chest, eye and neck
--- NOTE | 2021-04-09 02:25 | NURSING ---
ESTHER Gruber contacted to Dr Davis to update on face, chest and neck. no new orders.
[2021-04-09] MEDS: Vancomycin IV 500 MG/100 ML BAG 100 MG IV (02:35)
[2021-04-09] MEDS: 0.9% Saline Lock 10 ML Syringe IV ×2 (04:30→08:28)
[2021-04-09 04:52] LABS: Hematocrit 48.3 % (40-54); Hemoglobin 15.8 g/dL (13.0-16.5); Mean Corp Hgb Conc 32.7 g/dL (32-36); Mean Corpuscular Volume 94.7 fL (80-94); Mean Platelet Vol. 10.5 fl (6.2-12.0); Platelet Count 349 K/mm3 (150-450); RBC Distribution Width CV 13.9 % (11.6-14.6); RBC Distribution Width SD 49.4 fl (35.1-43.9); White Blood Count 14.2 K/mm3 (4.4-11.0)
[2021-04-09 05:17] LABS: ALB/GLOB Ratio 0.4 RATIO (0.9-2.4); AST(SGOT) 44 U/L (15-37); Alanine Aminotransfer ALT/SGPT 42 U/L (16-61); Alkaline Phosphatase 107 U/L (45-117); Anion Gap 13 (5-15); BUN 84 mg/dL (7-18); BUN/Creat Ratio 20.8 RATIO (10-20); Calcium,Total 7.8 mg/dL (8.5-10.1); Chloride 100 mmol/L (98-107); Creatinine, Serum 4.03 mg/dL (0.70-1.30); EST Glomerular Filtration Rate 16 mL/min (>60); Est Glom Filt Rate - Afr Amer 19 mL/min (>60); Estimated Creatinine Clearance 18.99 ml/min; Globulin 5.1 g/dL (2.2-4.2); Glucose 208 mg/dL (74-106); Protein, Total 7.1 g/dL (6.4-8.2); Sodium Level 139 mmol/L (136-145)
[2021-04-09 05:30] LABS: Allen Test Positive; Base Excess -5 mmol/L (-2 to +2); Bicarbonate 24.3 mmol/L (22-26); Blood Gas Specimen Type ART; FI02 100; Mode BiLevel; O2 Delivery Device Adult Vent; PO2 48 mmHG (75-100); RR 12; SITE R Radial; SO2 68 % (95-99); Total Carbon Dioxide 27 mmol/L; pCO2 72.2 mmHg (35-45); pH 7.14 (7.35-7.45)
--- NOTE | 2021-04-09 05:35 | CPS ---
Critical values on ABG were given to RN from PNEUMATIC TOOL OPERATOR CHRISTEL
--- NOTE | 2021-04-09 06:55 | PCM.RX.CS ---
Consult Pharmacy has been consulted to manage selected antiobiotic: Vancomycin Type of Consult: Follow-up Labs: Sodium 139 mmol/L (136-145) 04/09/21 04:30 Potassium 5.0 mmol/L (3.5-5.1) 04/09/21 04:30 Chloride 100 mmol/L (98-107) 04/09/21 04:30 Carbon Dioxide 26.0 mmol/L (21.0-32.0) 04/09/21 04:30 Anion Gap 13 (5-15) 04/09/21 04:30 BUN 84 mg/dL (7-18) H 04/09/21 04:30 Creatinine 4.03 mg/dL (0.70-1.30) H 04/09/21 04:30 Est GFR (MDRD) Af Amer 19 mL/min (>60) L 04/09/21 04:30 Est GFR (MDRD) Non-Af 16 mL/min (>60) L 04/09/21 04:30 BUN/Creatinine Ratio 20.8 RATIO (10-20) H 04/09/21 04:30 Glucose 208 mg/dL (74-106) H 04/09/21 04:30 Microbiology: Microbiology 04/07/21 10:53 Sputum, Expectorated/Coughed Gram Stain - Final 04/07/21 10:53 Sputum, Expectorated/Coughed Respiratory Culture - Preliminary Staphylococcus aureus Alpha Hemolytic Streptococcus 04/04/21 04:15 Urine, Clean Catch Legionella Antigen - Final 04/04/21 04:15 Urine, Clean Catch Streptococcus pneumoniae Antigen (M - Final 04/03/21 21:25 Mucosa - Nasopharyngeal Respiratory Panel (PCR) - Final Goal Trough: 15-20 mcg/mL Pharmacy Plan for Drug Dosing: DAILY ASSESSMENT Current Vancomcyin Dose: 500mg IV q12h (,) Number of Doses Received: 2000mg x1 on 04/08/21 at 1400, 500mg x1 on 04/09/21 at 0235 Current Renal Function: SrCr 4.03 Renal Function Trend: SrCr increased from 1.77 on 04/08/21 to 4.03 on 04/18/21 Lab/Micro: Any Change in Vanc Plan: recommend holding future doses due to increase in SrCr and checking a random level 04/10/21 at 0600 Pending Level: 04/10/21 at 0600 Pharmacy Service will continue to monitor and adjust dosing as required. Follow-Up Labs: Trough Vancomycin - 04/10/21 at 0600 (random level)
--- NOTE | 2021-04-09 06:59 | NURSING ---
Attempted to call daughter Brii, voice message left.
--- NOTE | 2021-04-09 07:19 | PCM.PN.INT ---
Assessment & Plan Assessment/Plan (1) Acute respiratory failure with hypoxia: (2) Pneumonia due to 2019 novel coronavirus: PLAN: RECOMMENDATIONS: 1. Continue APRV and wean FiO2 to maintain oxygen saturations at or above 90%. 2. Potential transition to paralytics and assist control pending family discussion 3. Continue Decadron to complete 10-day treatment course. 4. Continue remdesivir. Continue to monitor liver and renal function. 5. Continue prophylactic Lovenox. 6. Continue baricitinib to complete treatment course. 7. Hold on Lasix today given increase in creatinine IMPRESSIONS: 1. Acute hypoxemic respiratory failure secondary to COVID-19 pneumonia Although the patient was initially referred to receive the monoclonal therapy on an outpatient basis, he became hypoxemic and required inpatient hospitalization. Patient ultimately required intubation on 04/07/2021 with findings of pneumomediastinum shortly after intubation. FiO2 will be weaned to maintain oxygen saturations at or above 90%. The patient will be continued on remdesivir, baricitinib, Decadron and prophylactic Lovenox. Patient with significant decompensation over the last 24 to 48 hours. Prognosis is grim, but if the family wishes to be aggressive, could attempt using paralytics and assist control to limit subcutaneous emphysema. 2. Hypertension/hyperlipidemia/depression/anxiety Complicates care, management, recovery and prognosis. Continue home medications as indicated. 3. Sinus arrhythmia Clinical suspicion for cardiac irritability secondary to pneumomediastinum. We will hold on any amiodarone for now. 4. Acute kidney injury Significant worsening in renal function compared to yesterday. Patient does not have any definitive reasons for hemodialysis emergently, but this will likely be required in the next 24 to 48 hours. TIME: 32 minutes of critical care time, independent of procedures, was spent addressing the patient's acute hypoxemic respiratory failure secondary to COVID-19 pneumonia, review of all data and collaboration with the care team. (5:30 AM to 6:30 AM) Subjective Subjective Patient with significant difficulties over the last 24 hours. Patient had worsening crepitus with extension into the face and arms. Patient also with hypoxia. Nursing had reported a wide-complex tachycardia overnight leading to a rapid response, but no interventions were required. Family was called in to evaluate the patient. They reportedly made the patient DNR Comfort Care arrest. Objective Data Objective Data Vital Signs: Vital Signs Temp Pulse Resp BP Pulse Ox 37.2 C 91 14 87/59 L 85 04/09/21 04:00 04/09/21 06:56 04/09/21 06:56 04/09/21 06:00 04/09/21 06:56 Oxygen Flow Rate (L/min) 60 Oxygen Delivery Method Mechanical Ventilator Weight: 86.6 kg Body Mass Index (BMI) 25.7 Intake & Output: Intake and Output for Last 24 Hours 04/07/21 04/08/21 04/09/21 23:59 23:59 23:59 Intake Total 1286.18 / 1350.68 2240.85 / 2290.20 522.17 / 522.17 Output Total 1000 / 1000 625 / 775 150 / 150 Balance 286.18 / 350.68 1615.85 / 1515.20 372.17 / 372.17 Medical Nutrition Assessment Dietitian: Malnutrition Criteria Met Start: 04/04/21 11:34 Freq: Status: Active Protocol: Document 04/08/21 10:28 GINI (Rec: 04/08/21 10:28 [facility] [id number]) Nutrition Malnutrition Evidence of Malnutrition Exists Yes Malnutrition (severe): Acute Illness/Injury Evidenced By Suboptimal Energy Intake ( Severe),Weight Loss (Severe) Clinical Problem Acute Disease or Injury Related Malnutrition Etiology severe acute malnutrition r/t inadequate energy intake d/t decreased appetite w/ acute illness Signs/Symptoms as evidenced by estimated PO intake meeting <50% of estimated nutritional needs x 13 days; unintentional wt loss of >5% in less than 2 weeks. Status Active Problem Recommendation Dietitian Recommendations/Changes Will order Vital AF 1.2 at 70 ml/hr with 110 ml water flush every 4 hours to provide ~ 2016 maria dolores/ 126 gm pro/ 2021 ml free water. Would start tf at 20 ml/hr and increase by 20 ml ever 8-10 hrs as pt tolerates until goal rate of 70 ml/hr achieved. When able to resume po diet, recommend regular diet d/t acute malnutrition and 4oz ensure compact w/ meals for additional calories/protein if consumed. Lab / Micro Data Result Diagrams: 04/09/21 04:30 04/09/21 04:30 Labs: Laboratory Results - last 24 hr 04/09/21 04:30: WBC 14.2 H, RBC 5.10, Hgb 15.8, Hct 48.3, MCV 94.7 H D, MCH 31.0, MCHC 32.7, RDW Std Deviation 49.4 H, RDW Coeff of Raven 13.9, Plt Count 349, MPV 10.5 04/09/21 04:30: Sodium 139, Potassium 5.0, Chloride 100, Carbon Dioxide 26.0, Anion Gap 13, BUN 84 H, Creatinine 4.03 H, Estim Creat Clear Calc 18.99, Est GFR (MDRD) Af Amer 19 L, Est GFR (MDRD) Non-Af 16 L, BUN/Creatinine Ratio 20.8 H, Glucose 208 H, Calcium 7.8 L, Total Bilirubin 1.00, AST 44 H, ALT 42, Alkaline Phosphatase 107, Total Protein 7.1, Albumin 2.0 L, Globulin 5.1 H, Albumin/Globulin Ratio 0.4 L Micro: Microbiology 04/07/21 10:53 Sputum, Expectorated/Coughed Gram Stain - Final 04/07/21 10:53 Sputum, Expectorated/Coughed Respiratory Culture - Preliminary Staphylococcus aureus Alpha Hemolytic Streptococcus 04/04/21 04:15 Urine, Clean Catch Legionella Antigen - Final 04/04/21 04:15 Urine, Clean Catch Streptococcus pneumoniae Antigen (M - Final 04/03/21 21:25 Mucosa - Nasopharyngeal Respiratory Panel (PCR) - Final ABG Data ABG results: ABG 04/08/21 04/09/21 19:57 05:23 Specimen Type ART ART Sample Site L Radial R Radial pH 7.29 L 7.14 L* Bicarbonate Actual 25.8 24.3 Total CO2 27 27 Base Excess -1 -5 L O2 Saturation 69 L 68 L O2 % 100 100 ABG pCO2 54.0 H 72.2 H* ABG pO2 41 L 48 L Adrián Test Positive Positive Respiration Rate 12 12 O2 Delivery Device ET Tube Adult Vent Vent Mode BiLevel BiLevel Crit Call To/Read Back Yes Clinical Comments Radiography Diagnostic Testing: Radiology Impression Chest X-Ray 04/08/21 16:24 IMPRESSION: 1. Stable since prior. 2. Small left possibly small right apical pneumothoraces. 3. Pneumomediastinum, severe subcutaneous emphysema. 4. Severe bilateral pneumonia. 5. Expected appearance of support lines. Electronically Signed: Aidan Mcallister MD at 17:11 EDT Tel , Service support , Physical Exam Const Constitutional Narrative: Extensive subcutaneous emphysema throughout the face, neck, chest and arms General Appearance: cooperative, lethargic, intubated and patient mechanically ventilated HEENT normocephalic and head/scalp atraumatic Eyes PERRL, EOMs intact bilaterally and conjunctivae normal Neck supple General: trachea midline Chest inspection of chest normal Chest: symmetrical chest wall rise and crepitus rib, clavicle bilateral, sternum and xiphoid process Resp Auscultation: diminished lung sounds; Negative for rales, rhonchi or wheezes Cardio S1 normal heart sound, S2 normal heart sound, no murmurs, no rub and no gallops Rhythm: regular rhythm GI normal to inspection, nondistended, normoactive bowel sounds Extremity no clubbing, cyanosis or edema Skin no rashes or lesions noted Neuro CN's II-XII intact bilaterally, moves all extremities and no focal motor deficits Psych cooperative and affect normal Charges/Coding Procedures Hospitalists Procedures: [id number] Critial Care 1st Hr
--- NOTE | 2021-04-09 07:42 | NURSING ---
Pt daughter on phone, updated on events, Dr Davis discussion of paralizing patient, she will discuss with her mom and they will be up of call in.
[2021-04-09] MEDS: Propofol 10MG/Ml 1,000 MG/100 ML Bottle 7.8 MG CONT INF (08:15)
[2021-04-09] MEDS: Enoxaparin 30 MG/0.3 ML Syringe SC (08:24)
[2021-04-09] MEDS: dexAMETHasone 4 MG/ML Vial 6 MG IV (08:24)
[2021-04-09] MEDS: Aspirin 81 MG TAB.CHEW GT (08:25)
[2021-04-09] MEDS: Famotidine 20 MG Tablet GT (08:25)
[2021-04-09] MEDS: Ascorbic Acid 500 MG Tablet 1000 MG PO (08:26)
[2021-04-09] MEDS: Sertraline 100 MG Tablet GT (08:26)
[2021-04-09] MEDS: Amiodarone 200 MG Tablet GT (08:26)
[2021-04-09] MEDS: Cyanocobalamin 500 MCG Tablet 1000 MCG GT (08:27)
[2021-04-09] MEDS: CHLORHEXIDINE GLUC 2% CLOTH 1 EACH TOWELETTE TOPICAL (08:27)
[2021-04-09] MEDS: Chlorhexidine 15 ML PO (08:30)
--- NOTE | 2021-04-09 10:30 | PCM.PN.ID ---
Physical Exam Narrative On vent. No fever. Const Constitutional Narrative: ill appearing HEENT HEENT Narrative: R face swelling Resp Auscultation: diminished lung sounds Cardio regular rate and regular rhythm GI normal to inspection, nondistended, normoactive bowel sounds Extremity General Extremity: edema Skin no rashes or lesions noted ID ID: Route of nutrition/ use of supplements: [] Nutritional Intake: [] IV Site: [] Ariza Catheter: [] Assessment & Plan Assessment/Plan (1) Pneumonia due to 2019 novel coronavirus: PLAN: Sx started 03/27/21, unvaccinated. also sick, did receive monoclonal Ab. On dex, completed remdesivir. Isolate for 20 days from start of symptoms. On baricitinib. Recommend vaccine once out of iso. CT neg for PE. On lovenox 30mg bid. Sputum with staph aureus and strep, 04/08 started vanc/ceftriaxone. Now on vent, pressors. 84% sat on 100% fiO2 this AM. Will stop baricitinib due to worsening TIFFANIE. Will follow (2) Acute respiratory failure with hypoxia:
--- NOTE | 2021-04-09 11:17 | PCM.PN.HOSP ---
Subjective Subjective Follow-up on acute respiratory failure/acute COVID-19 pneumonia: Patient was seen and examined. His oxygen requirements have worsened. Chest x-ray this morning shows severe chest wall emphysema, severe pneumomediastinum Objective Data Objective Data Vital Signs: Vital Signs Temp Pulse Resp BP Pulse Ox 98.6 F 89 12 79/51 L 85 04/09/21 08:00 04/09/21 10:00 04/09/21 10:00 04/09/21 10:00 04/09/21 10:00 Oxygen Flow Rate (L/min) 60 Oxygen Delivery Method Mechanical Ventilator Weight: 86.6 kg Body Mass Index (BMI) 25.7 Intake & Output: Intake and Output for Last 24 Hours 04/07/21 04/08/21 04/09/21 23:59 23:59 23:59 Intake Total 1286.18 / 1350.68 2240.85 / 2290.20 822.58 / 822.58 Output Total 1000 / 1000 625 / 775 150 / 150 Balance 286.18 / 350.68 1615.85 / 1515.20 672.58 / 672.58 Medical Nutrition Assessment Dietitian: Malnutrition Criteria Met Start: 04/04/21 11:34 Freq: Status: Active Protocol: Document 04/09/21 10:36 AG (Rec: 04/09/21 10:36 [id number]) Nutrition Malnutrition Evidence of Malnutrition Exists Yes Malnutrition (severe): Acute Illness/Injury Evidenced By Suboptimal Energy Intake ( Severe),Weight Loss (Severe) Clinical Problem Acute Disease or Injury Related Malnutrition Etiology severe acute malnutrition r/t inadequate energy intake d/t decreased appetite w/ acute illness Signs/Symptoms as evidenced by estimated PO intake meeting <50% of estimated nutritional needs >2 weeks; unintentional wt loss of >5% < 2 weeks. Status Active Problem Recommendation Dietitian Recommendations/Changes NPO while intubated; Continue Vital AF 1.2 via OGT at goal rate of 70mL/hour w/ 110mL H2O flush every 4 hours to provide 2016 calories, 126 g protein, and 2022mL fluid/day. Start at 20mL/hour, recommend increased by 20mL every 6-8 hours as tolerated. Lab / Micro Data Result Diagrams: 04/09/21 04:30 04/09/21 04:30 Labs: Laboratory Results - last 24 hr 04/09/21 04:30: WBC 14.2 H, RBC 5.10, Hgb 15.8, Hct 48.3, MCV 94.7 H D, MCH 31.0, MCHC 32.7, RDW Std Deviation 49.4 H, RDW Coeff of Raven 13.9, Plt Count 349, MPV 10.5 04/09/21 04:30: Sodium 139, Potassium 5.0, Chloride 100, Carbon Dioxide 26.0, Anion Gap 13, BUN 84 H, Creatinine 4.03 H, Estim Creat Clear Calc 18.99, Est GFR (MDRD) Af Amer 19 L, Est GFR (MDRD) Non-Af 16 L, BUN/Creatinine Ratio 20.8 H, Glucose 208 H, Calcium 7.8 L, Total Bilirubin 1.00, AST 44 H, ALT 42, Alkaline Phosphatase 107, Total Protein 7.1, Albumin 2.0 L, Globulin 5.1 H, Albumin/Globulin Ratio 0.4 L Micro: Microbiology 04/08/21 16:30 Sputum, Induced/Lukens Gram Stain - Final 04/08/21 16:30 Sputum, Induced/Lukens Respiratory Culture - Preliminary Staphylococcus aureus 04/07/21 10:53 Sputum, Expectorated/Coughed Gram Stain - Final 04/07/21 10:53 Sputum, Expectorated/Coughed Respiratory Culture - Preliminary Staphylococcus aureus Strep pneumoniae 04/04/21 04:15 Urine, Clean Catch Legionella Antigen - Final 04/04/21 04:15 Urine, Clean Catch Streptococcus pneumoniae Antigen (M - Final 04/03/21 21:25 Mucosa - Nasopharyngeal Respiratory Panel (PCR) - Final ABG Data ABG results: ABG 04/08/21 04/09/21 19:57 05:23 Specimen Type ART ART Sample Site L Radial R Radial pH 7.29 L 7.14 L* Bicarbonate Actual 25.8 24.3 Total CO2 27 27 Base Excess -1 -5 L O2 Saturation 69 L 68 L O2 % 100 100 ABG pCO2 54.0 H 72.2 H* ABG pO2 41 L 48 L Adrián Test Positive Positive Respiration Rate 12 12 O2 Delivery Device ET Tube Adult Vent Vent Mode BiLevel BiLevel Crit Call To/Read Back Yes Clinical Comments Radiography Diagnostic Testing: Radiology Impression Chest X-Ray 04/08/21 16:24 IMPRESSION: 1. Stable since prior. 2. Small left possibly small right apical pneumothoraces. 3. Pneumomediastinum, severe subcutaneous emphysema. 4. Severe bilateral pneumonia. 5. Expected appearance of support lines. Electronically Signed: Aidan Mcallister MD at 17:11 EDT Tel , Service support , Physical Exam Narrative Physical exam: General: Alert, Oriented x3, Cooperative, intubated, sedated HEENT: Atraumatic, severe ballooning of the face and neck from emphysema Oral: Moist Mucosa Neck: Supple Lungs: Diminished to auscultation, severe anterior chest wall emphysema Cardiovascular: HS I+II, regular, no murmurs Abdomen: Bowel Sounds Present, Soft, Non Tender Extremities: Bilateral leg edema +3 Assessment & Plan Assessment/Plan (1) Acute respiratory failure with hypoxia: (2) Pneumonia due to 2019 novel coronavirus: (3) TIFFANIE (acute kidney injury): (4) Hypokalemia: PLAN: 1. Acute hypoxic respiratory failure secondary to acute COVID-19 pneumonia/worsening pneumothorax/pneumomediastinum with severe subcutaneous emphysema Patient's oxygen requirements are worse. Remains intubated and mechanical ventilator Facility Operations Manager and ID following Completed Remdesivir. Continue on Decadron 2. Hypokalemia, replaced, recheck in a.m. 3. Acute kidney injury, likely secondary to dehydration, kidney function is worse Continue to hold lisinopril and hydrochlorothiazide Off baricitinib Repeat blood work in a.m. 4. Rest of his chronic medical conditions including hypertension/dyslipidemia/anxiety/depression -all remained stable Prognosis is guarded Charges/Coding Visit Charges Inpatient E&M: 21427 Subs Hosp L3
--- NOTE | 2021-04-09 14:10 | NURSING ---
Spoke with ruiz from [facility] at 1230 to inform him of patients family plans of withdrawaling care at 1300 Ruiz states it is ok to withdraw care and to notify [facility] with cardiac time of
[2021-04-09] MEDS: LORazepam 2 MG/ML Syringe IV (14:26)
[2021-04-09] MEDS: Morphine 4 MG/ML Syringe IV (14:52)
--- NOTE | 2021-04-09 15:23 | NURSING ---
[id number] family at bedside asking for terminal extubation family stepped out, Krish REYNOSO and this RN extubated patients, comfort meds given, family at bedside
--- NOTE | 2021-04-09 15:37 | CHAPLAIN ---
Type of Pastoral Visit ___ Initial Visit ___ Follow-up Visit ___ On-call Visit ___ General Patient Visit ___ Spiritual Assessment _x__ Family Conference _x__ Bereavement ___ Rapid Response ___ Code Blue _x__ Other (describe below) Pastoral Care Referral From ___ Patient _x__ Family _x__ Nurse ___ Physician ___ Sonography Technologist ___ Director Credit Risk ___ Other (describe below) Sacrament/Intervention ___ Active listening ___ Anointing _x__ Scientologist _x__ Bereavement ___ Communion ___ Shanda exploration ___ ___ Life review _x__ Prayer ___ Reconciliation ___ Sacrament of Sick _x__ Supportive presence ___ Wedding ___ Other (describe below) Pastoral Comments family of patient have requested support for end-of-life situation; met with family and also notified RN of patient's status at time of visit in room; requests that patient be baptized in the [employer] shanda as he said he would do it for me, but never got the chance; patient is baptized with family members around the bedside; prayer is offered for family and patient; presence given at time of extubation and following; will stay available as needed for family
--- NOTE | 2021-04-09 16:56 | NURSING ---
Time of 1535. Family present. No pulse or repirations, verified w/MILEY Kellogg. Family offered bereavement items. Denise took all belongings home including wallet and cell phone.
--- NOTE | 2021-04-10 07:18 | EXP.PCM_ITS ---
Preliminary Cause of Preliminary Cause of Preliminary Cause of : Acute hypoxic respiratory failure secondary to acute COVID-19 pneumonia Acute CVA pneumomediastinum/bilateral pneumothoraces Date of Admission: 04/03/21 Date of : 04/09/21 Principle Diagnosis Problem List: Active and Suspected Problems (Updated 04/09/21 @ 11:15 by Shy Douglas) Pneumonia due to 2019 novel coronavirus (Acute) Acute respiratory failure with hypoxia (Acute) TIFFANIE (acute kidney injury) (Acute) Hypokalemia (Acute) Hospital Course 70-year-old male with multiple comorbidities of confirmatory arthritis, who was unvaccinated for COVID-19 infection, who comes in with acute COVID-19 symptoms that started on 03/27/21. Patient had received monoclonal therapy in the outpatient. He was admitted to the hospital and started on dexamethasone and remdesivir. Infectious disease and surgical physician assistant were consulted. She had a rapid decline in his respiratory status within 12 hours of admission requiring ICU transfer. He initially was managed on noninvasive ventilation?BiPAP. He also was started on baricitinib. His respiratory status however continued to decline even on BiPAP/able. He was intubated on 04/07/21. He was noted to have A. fib with RVR soon after intubation and was started on amiodarone. Patient was noted subsequently to have acute kidney injury in the dose for baricitinib was decreased. His acute kidney injury continues to worsen the next day and he was taking all baricitinib. Patient was also noted shortly to have pneumonia mediastinum. This continued to worsen. Family came in to see patient on 04/09/21. His pneumomediastinum and pneumothorax as well as subcutaneous emphysema had worsened. Family decided to withdraw care. Time of was 1535. Assessment & Plan Assessment/Plan (1) Acute respiratory failure with hypoxia: (2) TIFFANIE (acute kidney injury): (3) Pneumonia due to 2019 novel coronavirus: (4) Pneumothorax: (5) Severe malnutrition: Visit Charges Inpatient E&M: 31337 Disch Hosp
== END 2021-04-09 15:35 | DRG 208 ==
LOC: ED 18:54 → PCU 19:08 → ICU 19:19
PROVIDERS: Internal Medicine; Internal Medicine Critical Care Medicine; Internal Medicine Infectious Disease; Admitting Provider Family Medicine; Emergency Provider Emergency Medicine; PCP Family Medicine; Visit Provider Internal Medicine
DX: U07.1 COVID-19 (principal); J12.82 Pneumonia due to coronavirus disease 2019; J96.01 Acute respiratory failure with hypoxia; N17.9 Acute kidney failure, unspecified; J93.9 Pneumothorax, unspecified; E87.6 Hypokalemia; E86.0 Dehydration; Z87.891 Personal history of nicotine dependence; I10 Essential (primary) hypertension; E78.5 Hyperlipidemia, unspecified; F41.9 Anxiety disorder, unspecified; F32.A Depression, unspecified; I48.91 Unspecified atrial fibrillation; Z66 Do not resuscitate; J98.2 Interstitial emphysema; Z79.899 Other long term (current) drug therapy
CPT/HCPCS: 31500; 31720; 36569; 36600; 71045; 71275; 80053; 82550; 82728; 82803; 83615; 83880; 84145; 84478; 84484; 85025; 85027; 85379; 86140; 87070; 87077; 87186; 87205; 87449; 87633; 93005; 94002; 94003; 97802; 99251; 99285; J7030; J7040; J7050; Q9967; A4216; G0463; J0696; J1940; J3010